=== PATIENT | female | born 1950 | race Caucasian/White ===

== ENCOUNTER → 2017-11-12 | Outpatient (CLI) | payer OTHER, MEDICARE ==
[~2017-11-12] MED LIST: ACTIFED; IBUP-1459
--- NOTE | 2017-11-12 15:53 | MAMMOGRAPHY REPORT ---
BILATERAL DIGITAL SCREENING MAMMOGRAM TOMOSYNTHESIS WITH CAD: 11/12/2017 CLINICAL HISTORY: Routine screening. Patient has no complaints. TECHNIQUE: Breast tomosynthesis in addition to standard 2D mammography was performed. Current study was also evaluated with a Computer Aided Detection (CAD) system. COMPARISON: Comparison is made to exams dated: 11/09/2015 mammogram, 11/24/2014 mammogram, 11/18/2013 m ammogram, 11/12/2012 mammogram, 11/07/2011 mammogram, and 11/01/2010 mammogram - [facility] nter. BREAST COMPOSITION: The tissue of both breasts is almost entirely fatty. FINDINGS: No suspicious masses, calcifications, or areas of architectural distortion are noted in ei ther breast. There has been no significant interval change compared to prior exams. IMPRESSION: ACR BI-RADS CATEGORY 1: NEGATIVE There is no mammographic evidence of malignancy. A 1 year screening mammogram is recommended. The pa tient will receive written notification of the results. Approximately 10% of breast cancers are not detected with mammography. A negative mammographic report should not delay biopsy if a clinically suggestive mass is present. Cherie Freed M.D. /:11/12/2017 11:16:13 [employer]: Yola XIONG(R)(M), [facility] letter sent: Normal 1/2 BI-RADS Code: ACR BI-RADS Category 1: Negative
== END | disposition home or self-care (01) ==
LOC: C.MAMM 09:58
PROVIDERS: ATTEND Obstetrics & Gynecology
DX: Z12.31 Encounter for screening mammogram for malignant neoplasm of breast (principal)

== ENCOUNTER 2018-05-16 17:20 | Inpatient (IN) | payer OTHER, MEDICARE ==
[~2018-05-16] VITALS: Ht 154.9 cm; Wt 72.9 kg
[2018-05-16] MEDS ORDERED: MoRPHine SULFATE 4 MG/ML 1 ML CARP\\VIAL IV STA (17:29)
[2018-05-16] MEDS ORDERED: ONDANSETRON INJ 2 MG/ML 2 ML VIAL IV STA (17:29)
[2018-05-16] MEDS ORDERED: ACETAMINOPHEN 500 MG TAB PO STA (17:29)
[2018-05-16] MEDS ORDERED: KETOROLAC TROMETHAMINE 30 MG/ML VIAL IV STA (17:29)
[2018-05-16] MEDS ORDERED: SODIUM CHLORIDE 0.9% 1000ML 1,000 ML IV STA (17:29)
--- NOTE | 2018-05-16 17:33 | EMERGENCY ROOM VISIT NOTE ---
History Report prepared by Sunshineibjaneth: Hunter Can Under the Supervision of: Dr. Pal Chavez M.D. First contact with patient: 17:24 Chief Complaint: ABDOMINAL PAIN Stated Complaint: ABDOMINAL PAIN History of Present Illness The patient is a 67 year old female who presents to the Emergency Room with complaints of umbilical abdominal pain and a fever. The patient states she has had the pain since last evening. She states the pain is intermittent and waxes and wanes. She states she has started to feel feverish today as well. She denies CP, SOB, nausea/vomiting/diarrhea, urinary complaints, or any other concerns. The patient denies trouble having a BM except she notes "pain inside" when she goes. She was concerned it was constipation so she took a stool softener yesterday, and has been having BMs. The patient states she has a history of diverticulitis. The patient states she has been taking Tylenol and ASA intermittently for pain. Source of History: patient Position: abdomen (umbilical) Symptom Intensity: moderate Quality: ache Timing: intermittent, waxes/wanes Modifying Factors (Relieving): other (positional) Associated Symptoms: + fevers, No chest pain, No SOB, No nausea, No vomiting , No back pain, No diarrhea, No urinary symptoms Review of Systems See HPI for pertinent positives & negatives. A total of 10 systems reviewed and were otherwise negative. Constitutional: + fever, No chills Respiratory: No shortness of breath Cardiovascular: No chest pain Abdomen: + pain, No nausea, No vomiting, No diarrhea, No constipation Genitourinary - Female: No dysuria, No urinary frequency, No urinary urgency , No urinary incontinence, No urinary retention Past Medical & Surgical History of diverticulitis. Social History Smoking Status: Never Smoker Smokeless Tobacco Use: No Marital Status: Housing Status: lives with significant other Current/Historical Medications Scheduled Acetaminophen (Tylenol), 1,000 MG PO UD Aspirin (Aspirin Ec), 325 MG PO DAILY Allergies Coded Allergies: No Known Allergies (Verified , 05/16/18) Physical Exam Vital Signs Date Time Temp Pulse Resp B/P (MAP) Pulse Ox O2 Delivery O2 Flow Rate FiO2 05/16/18 18:22 93 20 137/72 96 Room Air 05/16/18 17:21 38.4 106 18 190/76 98 Room Air Physical Exam GENERAL: Patient is in no acute distress. HEENT: No acute trauma, normocephalic atraumatic, mucous membranes moist, no nasal congestion, no scleral icterus. NECK: No stridor, no adenopathy, no meningismus, trachea is midline. LUNGS: Clear to auscultation bilaterally, no wheeze, no rhonchi, breath sounds equal. HEART: Without murmurs gallops or rubs, regular rate and rhythm. ABDOMEN: Tenderness to bilateral lower quadrants but more on the left. Soft, bowel sounds positive, no hernias, no peritonitis. EXTREMITIES: No cyanosis or edema, full range of motion of all the joints without pain or difficulty, no signs for acute trauma. NEUROLOGIC: Oriented x 3, no acute motor or sensory deficits, no focal weakness. SKIN: No rash, no jaundice, no diaphoresis. BACK: No flank pain with percussion Medical Decision & Procedures ER Provider Diagnostic Interpretation: Radiology results as stated below per my review and radiologist interpretation: ABDOMEN AND PELVIS CT WITH IV CONTRAST FINDINGS: A few linear densities at the lung bases consistent with subsegmental atelectasis. No pneumoperitoneum. No pneumatosis. No suspicious lytic or blastic osseous lesions. No hepatic or splenic masses. The gallbladder, pancreas , and adrenal glands are unremarkable. Mild intra and extra hepatic bile duct dilatation remains unchanged. The common bile duct measures up to 7.7 mm. No hydronephrosis. There is a 7 mm hypodense lesion within the lower pole the left kidney. This is similar to the prior study and likely represents a cyst. No retroperitoneal lymphadenopathy. No bladder wall thickening. The uterus is surgically absent. No pelvic lymphadenopathy. There is focal thickening of the mid sigmoid colon with an inflamed diverticulum versus a small pericolonic abscess measuring 1.6 cm. This is consistent with acute diverticulitis. There is associated pericolonic inflammatory change at this location. There is a loop of small bowel adjacent to this area of inflammation which is mildly thickened. This is likely reactive. There is mild mass effect along the left side of the bladder. There is a possible developing colovaginal fistula along the left side of the vaginal cuff which is mildly thickened and abuts the inflamed colon. No dilated loops of small bowel to suggest an obstruction. Normal appendix. IMPRESSION: 1. Acute sigmoid diverticulitis. There is a 1.6 cm inflamed diverticulum versus small pericolonic abscess at this location. This is similar to the prior study. 2. There is a possible developing colovaginal fistula along the left side of the vaginal cuff which is mildly thickened and abuts the inflamed colon. Follow- up nonemergent endoscopy should be performed to evaluate for the possibility of a fistula as well as exclude the less likely possibility of an underlying mass. 3. Stable mild intra and extra hepatic bile duct dilatation. Laboratory Results 05/16/18 18:02 Red Blood Count 3.95, Mean Corpuscular Volume 93.4, Mean Corpuscular Hemoglobin 31.1, Mean Corpuscular Hemoglobin Concent 33.3, Mean Platelet Volume 9.6, Neutrophils (%) (Auto) 74.0, Lymphocytes (%) (Auto) 15.4, Monocytes (%) (Auto) 10.0, Eosinophils (%) (Auto) 0.2, Basophils (%) (Auto) 0.1, Neutrophils # (Auto ) 9.30, Lymphocytes # (Auto) 1.93, Monocytes # (Auto) 1.26, Eosinophils # (Auto ) 0.03, Basophils # (Auto) 0.01 05/16/18 18:02 Test 05/16/18 18:02 05/16/18 19:20 White Blood Count 12.57 K/uL (4.8-10.8) Red Blood Count 3.95 M/uL (4.2-5.4) Hemoglobin 12.3 g/dL (12.0-16.0) Hematocrit 36.9 % (37-47) Mean Corpuscular Volume 93.4 fL (80-100) Mean Corpuscular Hemoglobin 31.1 pg (25-34) Mean Corpuscular Hemoglobin Concent 33.3 g/dl (32-36) Platelet Count 290 K/uL (130-400) Mean Platelet Volume 9.6 fL (7.4-10.4) Neutrophils (%) (Auto) 74.0 % Lymphocytes (%) (Auto) 15.4 % Monocytes (%) (Auto) 10.0 % Eosinophils (%) (Auto) 0.2 % Basophils (%) (Auto) 0.1 % Neutrophils # (Auto) 9.30 K/uL (1.4-6.5) Lymphocytes # (Auto) 1.93 K/uL (1.2-3.4) Monocytes # (Auto) 1.26 K/uL (0.11-0.59) Eosinophils # (Auto) 0.03 K/uL (0-0.5) Basophils # (Auto) 0.01 K/uL (0-0.2) RDW Standard Deviation 43.2 fL (36.4-46.3) RDW Coefficient of Variation 12.6 % (11.5-14.5) Immature Granulocyte % (Auto) 0.3 % Immature Granulocyte # (Auto) 0.04 K/uL (0.00-0.02) Anion Gap 7.0 mmol/L (3-11) Est Creatinine Clear Calc Drug Dose 79.4 ml/min Estimated GFR () 107.4 Estimated GFR (Non- 92.7 BUN/Creatinine Ratio 25.8 (10-20) Calcium Level 8.9 mg/dl (8.5-10.1) Total Bilirubin 0.8 mg/dl (0.2-1) Aspartate Amino Transf (AST/SGOT) 21 U/L (15-37) Alanine Aminotransferase (ALT/SGPT) 28 U/L (12-78) Alkaline Phosphatase 86 U/L (45-117) Total Protein 7.3 gm/dl (6.4-8.2) Albumin 3.6 gm/dl (3.4-5.0) Globulin 3.7 gm/dl (2.5-4.0) Albumin/Globulin Ratio 1.0 (0.9-2) Lipase 125 U/L (73-393) Urine Color YELLOW Urine Appearance CLEAR (CLEAR) Urine pH 5.0 (4.5-7.5) Urine Specific [place] 1.018 (1.000-1.030) Urine Protein NEG (NEG) Urine Glucose (UA) NEG (NEG) Urine Ketones NEG (NEG) Urine Occult Blood NEG (NEG) Urine Nitrite NEG (NEG) Urine Bilirubin NEG (NEG) Urine Urobilinogen NEG (NEG) Urine Leukocyte Esterase NEG (NEG) Medications Administered Medications (Trade) Dose Ordered Sig/Sally Route Start Time Stop Time Status Last Admin Dose Admin Ondansetron HCl (Zofran Inj) 4 mg NOW STAT IV 05/16/18 17:29 05/16/18 17:33 DC 05/16/18 17:55 4 MG Sodium Chloride 1,000 ml @ 999 mls/hr Q1H1M STAT IV 05/16/18 17:29 05/16/18 18:29 DC 05/16/18 17:55 999 MLS/HR Ketorolac Tromethamine (Toradol Inj) 15 mg NOW STAT IV 05/16/18 17:29 05/16/18 17:33 DC 05/16/18 17:56 15 MG Acetaminophen (Tylenol Tab) 1,000 mg NOW STAT PO 05/16/18 17:29 05/16/18 17:33 DC 05/16/18 17:57 1,000 MG Morphine Sulfate (MoRPHine SULFATE INJ) 4 mg NOW STAT IV 05/16/18 17:29 05/16/18 17:34 DC 05/16/18 17:56 4 MG ED Course 1927: Urine Dip showed trace proteins with no signs of infection Medical Decision Ms. Echeverria is a pleasant 67 year old female who reports today with umbilical abdominal pain x1 day. She reported a fever today which is why she came in. She notes a history of diverticulitis. Exam showed bilateral lower quadrant abdominal tenderness, worse on the left, and no flank tenderness with percussion. Differential Diagnosis: Diverticulitis, Appendicis, Abscess, UTI, Dehydration, Biliary Colic, Colitis, Hernia, Pyelonephritis Orders: 1731: IV Fluids, CBC w/ differential, Lipase, CMP, UA Clean Catch, Zofran, Toradol, Tylenol, CT Abdomen/Pelvis, Morphine There is a mild leukocytosis, this is consistent with infection. No concerning anemia. No significant electrolyte abnormality, kidney failure, hepatitis or pancreatitis. Urinalysis does not show evidence for infection. Abdominal and pelvis CT shows diverticulitis with a potential small abscess and potential fistula. No bowel obstruction. On my exam, she was not toxic. There was no peritonitis. The patient received IV Zosyn, IV saline, IV morphine, IV Toradol, oral Tylenol and IV Zofran. She feels improved. I did speak with general surgery. The patient does require a hospital stay with IV antibiotic's. No emergent surgery required. She may require surgery in the upcoming near future but nothing required this evening. The patient was updated. I spoke to case management. The on-call hospitalist was consulted. Medication Reconcilliation Current Medication List: was personally reviewed by me Blood Pressure Screening Patient's blood pressure: Elevated blood pressure Blood pressure disposition: Elevated BP felt to be situational Consults Time Called: 1934 Consulting Physician: Dr. Ronald Farfan (General Surgery) Returned Call: 1944 Discussed HPI, ROS, PE, and Results. Feels patient can be admitted to hospital and receive antibiotics. Does not feel there is immediate need for surgery. Additional Consults: Time Called: 1949 Consulted Physician: Dr. Ruiz ([facility] Hospitalist) Returned Call: 1954 Additional Comments: Discussed HPI, ROS, PE, and Results. Agrees to admit the patient. Impression Primary Impression: Acute diverticulitis Additional Impressions: Fever Leukocytosis Scribe Attestation The scribe's documentation has been prepared under my direction and personally reviewed by me in its entirety. I confirm that the note above accurately reflects all work, treatment, procedures, and medical decision making performed by me. Departure Information Dispostion Being Evaluated By Hospitalist Referrals Charlene Nation M.D. (PCP) Forms Call Back Authorization, HOME CARE DOCUMENTATION FORM, IMPORTANT VISIT INFORMATION Patient Instructions My [facility] Problem Qualifiers
[2018-05-16] MEDS ORDERED: OPTIRAY 320 IV PRN (17:45)
[2018-05-16 18:22] LABS: BASO % 0.1 %; BASO ABS # 0.01 K/uL (0-0.2); EOS % 0.2 %; EOS ABS # 0.03 K/uL (0-0.5); HEMATOCRIT 36.9 % (37-47); HEMOGLOBIN 12.3 g/dL (12.0-16.0); IG# 0.04 K/uL (0.00-0.02); LYMPH % 15.4 %; LYMPH ABS # 1.93 K/uL (1.2-3.4); MEAN CELL VOLUME 93.4 fL (80-100); MEAN CORPUSCULAR HEMOGLOBIN 31.1 pg (25-34); MEAN CORPUSCULAR HGB CONC 33.3 g/dl (32-36); MEAN PLATELET VOLUME 9.6 fL (7.4-10.4); MONO ABS # 1.26 K/uL (0.11-0.59); PLATELET COUNT 290 K/uL (130-400); RED CELL DISTRIBUTION WIDTH CV 12.6 % (11.5-14.5); RED CELL DISTRIBUTION WIDTH SD 43.2 fL (36.4-46.3); WHITE BLOOD COUNT 12.57 K/uL (4.8-10.8)
[2018-05-16] MEDS ORDERED: ACET-1256 PO (18:25)
[2018-05-16] MEDS ORDERED: ASPI325T39 PO (18:25)
[2018-05-16 18:40] LABS: ALBUMIN 3.6 gm/dl (3.4-5.0); CALCIUM 8.9 mg/dl (8.5-10.1); CREATININE 0.66 mg/dl (0.60-1.20); POTASSIUM 3.8 mmol/L (3.5-5.1); TOTAL PROTEIN 7.3 gm/dl (6.4-8.2)
--- NOTE | 2018-05-16 19:33 | DIAGNOSTIC IMAGING REPORT ---
ABDOMEN AND PELVIS CT WITH IV CONTRAST CT DOSE: 437.86 mGy.cm HISTORY: Generalized abdominal pain. Assess for diverticulitis. TECHNIQUE: Multiaxial CT images of the abdomen and pelvis were performed following the use of intravenous contrast. A dose lowering technique was utilized adhering to the principles of ALARA. COMPARISON STUDY: Abdomen and pelvis CT 12/08/2012. FINDINGS: A few linear densities at the lung bases consistent with subsegmental atelectasis. No pneumoperitoneum. No pneumatosis. No suspicious lytic or blastic osseous lesions. No hepatic or splenic masses. The gallbladder, pancreas, and adrenal glands are unremarkable. Mild intra and extra hepatic bile duct dilatation remains unchanged. The common bile duct measures up to 7.7 mm. No hydronephrosis. There is a 7 mm hypodense lesion within the lower pole the left kidney. This is similar to the prior study and likely represents a cyst. No retroperitoneal lymphadenopathy. No bladder wall thickening. The uterus is surgically absent. No pelvic lymphadenopathy. There is focal thickening of the mid sigmoid colon with an inflamed diverticulum versus a small pericolonic abscess measuring 1.6 cm. This is consistent with acute diverticulitis. There is associated pericolonic inflammatory change at this location. There is a loop of small bowel adjacent to this area of inflammation which is mildly thickened. This is likely reactive. There is mild mass effect along the left side of the bladder. There is a possible developing colovaginal fistula along the left side of the vaginal cuff which is mildly thickened and abuts the inflamed colon. No dilated loops of small bowel to suggest an obstruction. Normal appendix. IMPRESSION: 1. Acute sigmoid diverticulitis. There is a 1.6 cm inflamed diverticulum versus small pericolonic abscess at this location. This is similar to the prior study. 2. There is a possible developing colovaginal fistula along the left side of the vaginal cuff which is mildly thickened and abuts the inflamed colon. Follow-up nonemergent endoscopy should be performed to evaluate for the possibility of a fistula as well as exclude the less likely possibility of an underlying mass. 3. Stable mild intra and extra hepatic bile duct dilatation. Electronically signed by: Gómez Soares M.D. 05/16/2018 7:31 PM Dictated Date/Time: 05/16/2018 7:23 PM
[2018-05-16] MEDS ORDERED: PIPERACILLIN/TAZOBACTAM 4.5 GM/100ML D5W IV STA (19:39)
[2018-05-16] MEDS ORDERED: TRAMADOL HCL 50 MG TAB PO PRN (20:45)
[2018-05-16] MEDS ORDERED: PROCHLORPERAZINE INJ 5 MG in SYRINGE 4 ML IV PRN (20:45)
[2018-05-16] MEDS ORDERED: ACETAMINOPHEN 325 MG TAB PO PRN (20:45)
[2018-05-16] MEDS ORDERED: MoRPHine SULFATE 4 MG/ML 1 ML CARP\\VIAL IV PRN (20:45)
--- NOTE | 2018-05-16 21:07 | Surgery Consultation ---
Consultation Date of Consultation: May 16, 2018. Attending Physician: Reason for Consultation: Sigmoid diverticulitis (Surendra Araujo PA-C) History of Present Illness Patient presented to the ED this evening with abdominal pain starting last night. [place] [facility] and [facility] of [facility]. Later that evening she developed Lower quadrant abdominal pain wrapping from the left to right. Reports her pain has gotten progressively worse since onset. Of note she also reports she had similar pain night after eating at [employer] but this resolved on its own. Reports she has had on and off fevers. Denies nausea, vomiting, recent illness. Last BM early this afternoon which was loose. Denies blood in stool. Urinating without issue. This will be her third bout of diverticulitis. The previous two were treated with conservative management in the ED without admission. Her last colonoscopy was approximately 5 years ago following a bout of diverticulitis with Dr. Rousseau with [facility]. Patient reports this colonoscopy showed unremarkable findings. Denies history of any abdominal surgeries. patient does take Aspirin 325mg daily. Denies use of other blood thinning or anticoagulant medications. WBC 12.57. CT shows findings significant for acute sigmoid diverticulitis with a 1.6 cm inflamed diverticulum vs pericolonic abscess, possible developing colovaginal fistula. (Surendra Araujo PA-C) Past Medical/Surgical History Medical Problems: (1) Acute diverticulitis Status: Acute (2) Fever Status: Acute (3) Leukocytosis Status: Acute (Surendra Araujo PA-C) Social History Smoking Status: Never Smoker Smokeless Tobacco Use: No Marital Status: Housing Status: lives with significant other (Surendra Araujo PA-C) Allergies Coded Allergies: No Known Allergies (Verified , 05/16/18) Home Medications Scheduled Acetaminophen (Tylenol), 1,000 MG PO UD Aspirin (Aspirin Ec), 325 MG PO DAILY Current Inpatient Medications Current Inpatient Medications Medications (Trade) Dose Ordered Sig/Sally Route Start Time Stop Time Status Last Admin Dose Admin Ioversol (Optiray 320) 100 ml UD PRN IV 05/16/18 17:45 05/20/18 17:44 Enoxaparin Sodium (Lovenox Inj) 40 mg Q24H SQ 05/16/18 20:45 06/15/18 20:44 UNV Acetaminophen (Tylenol Tab) 650 mg Q4H PRN PO 05/16/18 20:45 06/15/18 20:44 UNV Tramadol HCl (Ultram Tab) not relieved by tylenol @ Q6H PRN PO 05/16/18 20:45 06/15/18 20:44 UNV Ketorolac Tromethamine (Toradol Inj) 15 mg Q6H PRN IV 05/16/18 20:45 05/21/18 20:44 UNV Prochlorperazine Edisylate 5 mg/ Syringe 5 ml @ 5 mls/min Q6H PRN IV 05/16/18 20:45 06/15/18 20:44 UNV Potassium Chloride/Sodium Chloride 1,000 ml @ 100 mls/hr Q10H IV 05/16/18 20:45 06/15/18 20:44 UNV Aspirin (Ecotrin Tab) 325 mg DAILY PO 05/17/18 09:00 06/16/18 08:59 UNV Morphine Sulfate (MoRPHine SULFATE INJ) 4 mg Q4H PRN IV 05/16/18 20:45 05/30/18 20:44 UNV Miscellaneous Information (Pharmacy Consult) 1 ea DAILY N/A 05/17/18 09:00 06/16/18 08:59 UNV (Surendra Araujo PA-C) Review of Systems Constitutional: + fever, No chills Respiratory: No shortness of breath Cardiovascular: No chest pain Abdomen: + pain (Lower abdominal pain), + problem reported (loose stools), No nausea, No vomiting, No diarrhea, No constipation Genitourinary - Female: No dysuria, No hematuria Integumentary: No new/changing skin lesions, No color change (Surendra Araujo , PA-C) Physical Exam Date Time Temp Pulse Resp B/P (MAP) Pulse Ox O2 Delivery O2 Flow Rate FiO2 05/16/18 20:30 84 18 155/83 97 Room Air 05/16/18 18:22 93 20 137/72 96 Room Air 05/16/18 17:21 38.4 106 18 190/76 98 Room Air General Appearance: WD/WN, no apparent distress Head: normocephalic, atraumatic ENT: hearing grossly normal Respiratory/Chest: no respiratory distress Abdomen/GI: soft, no organomegaly, no pulsatile mass, + tenderness (RLQ wrapping to LLQ TTP - most prominent in LLQ) Neurologic/Psych: alert, normal mood/affect, oriented x 3 Skin: normal color, warm/dry (Surendra Araujo, OCTAVIO) Laboratory Results Last 24 Hours Test 05/16/18 18:02 05/16/18 19:20 05/16/18 20:11 White Blood Count 12.57 K/uL Red Blood Count 3.95 M/uL Hemoglobin 12.3 g/dL Hematocrit 36.9 % Mean Corpuscular Volume 93.4 fL Mean Corpuscular Hemoglobin 31.1 pg Mean Corpuscular Hemoglobin Concent 33.3 g/dl Platelet Count 290 K/uL Mean Platelet Volume 9.6 fL Neutrophils (%) (Auto) 74.0 % Lymphocytes (%) (Auto) 15.4 % Monocytes (%) (Auto) 10.0 % Eosinophils (%) (Auto) 0.2 % Basophils (%) (Auto) 0.1 % Neutrophils # (Auto) 9.30 K/uL Lymphocytes # (Auto) 1.93 K/uL Monocytes # (Auto) 1.26 K/uL Eosinophils # (Auto) 0.03 K/uL Basophils # (Auto) 0.01 K/uL RDW Standard Deviation 43.2 fL RDW Coefficient of Variation 12.6 % Immature Granulocyte % (Auto) 0.3 % Immature Granulocyte # (Auto) 0.04 K/uL Sodium Level 136 mmol/L Potassium Level 3.8 mmol/L Chloride Level 104 mmol/L Carbon Dioxide Level 26 mmol/L Anion Gap 7.0 mmol/L Blood Urea Nitrogen 17 mg/dl Creatinine 0.66 mg/dl Est Creatinine Clear Calc Drug Dose 79.4 ml/min Estimated GFR () 107.4 Estimated GFR (Non- 92.7 BUN/Creatinine Ratio 25.8 Random Glucose 111 mg/dl Calcium Level 8.9 mg/dl Magnesium Level 2.1 mg/dl Total Bilirubin 0.8 mg/dl Aspartate Amino Transf (AST/SGOT) 21 U/L Alanine Aminotransferase (ALT/SGPT) 28 U/L Alkaline Phosphatase 86 U/L Total Protein 7.3 gm/dl Albumin 3.6 gm/dl Globulin 3.7 gm/dl Albumin/Globulin Ratio 1.0 Lipase 125 U/L Urine Color YELLOW Urine Appearance CLEAR Urine pH 5.0 Urine Specific [place] 1.018 Urine Protein NEG Urine Glucose (UA) NEG Urine Ketones NEG Urine Occult Blood NEG Urine Nitrite NEG Urine Bilirubin NEG Urine Urobilinogen NEG Urine Leukocyte Esterase NEG (Surendra Araujo, LUIS ALBERTOC) Assessment & Plan Acute sigmoid diverticulitis w/ possible 1.6 inflamed diverticulum vs pericolonic abscess, possible colovaginal fistula. Abdomen soft, non-distended, TTP in B/L lower quadrants. No N/V at this time. febrile. No acute surgical intervention indicated at this time. Admit per medicine - recommend conservative management for diverticulitis. IVF, IV Zosyn, NPO, pain medication prn, anti-emetics prn, SCDs. Likely will need outpatient colonoscopy after resolution. Findings discussed with Dr. Farfan. Will follow. Please contact with questions or concerns. (Surendra Araujo, QUINTEN-C) 05/17/18- pt was seen in ER and hx reviewed- also see Nasir Araujo's note had acute diverticulitis w/ pericolonic inflammation- no overt sxs to suggest colovaginal fistula- will need several days of IV atbx and f/u as outpt if she progresses well. May require colon resection in future. (Ronald Farfan M.D.)
[2018-05-16 22:33] VITALS: BP 157/83; PULSE 84; TEMP 36.6; O2SAT 96; BMI 30.9
--- NOTE | 2018-05-16 22:38 | HISTORY & PHYSICAL EXAMINATION ---
DATE OF ADMISSION: 05/16/2018 PRIMARY CARE DOCTOR: None. CHIEF COMPLAINT: Abdominal pain. HISTORY OF PRESENT ILLNESS: Medical history significant for recurrent diverticulitis (2 episodes), mood disorder, Cervical intraepithelial neoplasia as per records. Four days history of mild, intermittent lower abdominal discomfort following dinner. Symptoms more pronounced last night. some nausea, no emesis. Patient had fever, chills. Nonbloody stools. Symptoms reminiscent of diverticulitis episodes. Denies dysuria. At the Emergency Room, CAT scan showed acute sigmoid diverticulitis with a 1.6 inflamed diverticulum versus small pericolonic abscess at the location. Possible developing colovaginal fistula along the left-sided vaginal cuff, mildly thickened but inflamed colon. Patient given Zosyn at the ER. MEDICAL HISTORY: As above. Last colonoscopy was about 5 years done at [facility]. OPERATIONS: Total abdominal hysterectomy, bilateral salpingo-oophorectomy, Recent orthopedic surgery, left upper extremity at [facility] 2 months ago. Patient requested to stay on aspirin for DVT prophylaxis until follow-up with surgeon. HOME MEDICATIONS: Aspirin, Tylenol. FAMILY HISTORY: Diverticulitis. PERSONAL AND SOCIAL HISTORY: Nonsmoker. No EtOH intake. Retired insurance claims examiner. REVIEW OF SYSTEMS: As per HPI, all 10 systems reviewed, all other ROS negative. PHYSICAL EXAMINATION: VITAL SIGNS: Blood pressure was noted to be 190/76, later 137/72; pulse rate 106, later 93; respiratory rate 18, temperature 38.4, sats 98 on room air. GENERAL: Noted to be slightly anxious, obese, in no respiratory distress. SKIN: Normal color, warm. HEENT: Bespectacled. [place] palpebral conjunctivae. No ptosis. Dry mucosa. NECK: Supple, nontender. CHEST: Clear to auscultation. No tenderness. HEART: Regular rate and rhythm. No murmur. ABDOMEN: Minimal hypogastric tenderness, some distention. EXTREMITIES: Healed scar on the left elbow. No LE tenderness. NEUROLOGIC: Coherent, no gross focality. LABORATORY DATA: Hemoglobin was noted to be 12.3, white blood cell count 12.7, platelets 290. Sodium 137, potassium 3.7, chloride 104, CO2 of 26, BUN 7, creatinine 0.66, glucose 111. CT abdomen and pelvis as above. UA clean. ASSESSMENT: 1. Sepsis secondary to complicated diverticulitis. 2. Situational hypertension. 3. Hyperglycemia ro DM. 4. Recent UE orthopedic procedure currently on ASA thromboprophylaxis. PLAN: GMF CS, lactic acid Bowel rest IV fluids, Zosyn. Surgery consult. RE complicated diverticulitis. (ER provider already in touch with Dr. Farfan) Outpatient GI follow-up for colonoscopy. Check hemoglobin A1c. Deep venous prophylaxis, Lovenox subQ. Full code. Patient has expressed interest in setting up PCP services with Dr. Leon of [facility] upon discharge if provider is still taking new patients. MARYD
[2018-05-16] MEDS: NSS + 20MEQ KCL 1000ML 1,000 ML IV SCH (22:52)
[2018-05-17] MEDS: PIPERACILL/TAZOBAC IV 3.375 GM in DEXTROSE 5% 100ML 100 ML IV SCH ×3 (02:08→17:59)
[2018-05-17 05:50] LABS: BASO % 0.1 %; BASO ABS # 0.01 K/uL (0-0.2); EOS % 0.8 %; EOS ABS # 0.06 K/uL (0-0.5); HEMATOCRIT 34.6 % (37-47); HEMOGLOBIN 11.7 g/dL (12.0-16.0); IG# 0.01 K/uL (0.00-0.02); LYMPH % 18.4 %; LYMPH ABS # 1.47 K/uL (1.2-3.4); MEAN CELL VOLUME 93.5 fL (80-100); MEAN CORPUSCULAR HEMOGLOBIN 31.6 pg (25-34); MEAN CORPUSCULAR HGB CONC 33.8 g/dl (32-36); MEAN PLATELET VOLUME 9.6 fL (7.4-10.4); MONO % 9.5 %; MONO ABS # 0.76 K/uL (0.11-0.59); NEUT % 71.1 %; NEUT ABS # 5.69 K/uL (1.4-6.5); PLATELET COUNT 265 K/uL (130-400); RED CELL DISTRIBUTION WIDTH CV 12.7 % (11.5-14.5); RED CELL DISTRIBUTION WIDTH SD 43.1 fL (36.4-46.3)
[2018-05-17 06:56] LABS: HEMOGLOBIN A1C 5.6 % (4.5-5.6)
--- NOTE | 2018-05-17 07:15 | Surgery Progress Note ---
Surgery Progress Note Date of Service May 17, 2018. Subjective + feeling well, + flatus, + pain controlled, + diet (chips/sips), No complaints , No bowel movement, No nausea, No vomiting Objective Vital Signs: Date Time Temp Pulse Resp B/P (MAP) Pulse Ox O2 Delivery O2 Flow Rate FiO2 05/17/18 00:00 Room Air 05/16/18 22:33 36.6 84 20 157/83 96 Room Air 05/16/18 21:11 82 18 154/80 97 05/16/18 20:30 84 18 155/83 97 Room Air 05/16/18 18:22 93 20 137/72 96 Room Air 05/16/18 17:21 38.4 106 18 190/76 98 Room Air General Appearance: WD/WN, no apparent distress Head: normocephalic, atraumatic Respiratory/Chest: no respiratory distress Abdomen: non distended, soft, no organomegaly, + tenderness (B/L lower quadrants) Laboratory Results: Results Past 24 Hours Test 05/16/18 18:02 05/16/18 19:20 05/16/18 20:54 05/17/18 05:26 Range/Units White Blood Count 12.57 8.00 4.8-10.8 K/uL Red Blood Count 3.95 3.70 4.2-5.4 M/uL Hemoglobin 12.3 11.7 12.0-16.0 g/dL Hematocrit 36.9 34.6 37-47 % Mean Corpuscular Volume 93.4 93.5 80-100 fL Mean Corpuscular Hemoglobin 31.1 31.6 25-34 pg Mean Corpuscular Hemoglobin Concent 33.3 33.8 32-36 g/dl Platelet Count 290 265 130-400 K/uL Mean Platelet Volume 9.6 9.6 7.4-10.4 fL Neutrophils (%) (Auto) 74.0 71.1 % Lymphocytes (%) (Auto) 15.4 18.4 % Monocytes (%) (Auto) 10.0 9.5 % Eosinophils (%) (Auto) 0.2 0.8 % Basophils (%) (Auto) 0.1 0.1 % Neutrophils # (Auto) 9.30 5.69 1.4-6.5 K/uL Lymphocytes # (Auto) 1.93 1.47 1.2-3.4 K/uL Monocytes # (Auto) 1.26 0.76 0.11-0.59 K/uL Eosinophils # (Auto) 0.03 0.06 0-0.5 K/uL Basophils # (Auto) 0.01 0.01 0-0.2 K/uL RDW Standard Deviation 43.2 43.1 36.4-46.3 fL RDW Coefficient of Variation 12.6 12.7 11.5-14.5 % Immature Granulocyte % (Auto) 0.3 0.1 % Immature Granulocyte # (Auto) 0.04 0.01 0.00-0.02 K/uL Sodium Level 136 136-145 mmol/L Potassium Level 3.8 3.5-5.1 mmol/L Chloride Level 104 98-107 mmol/L Carbon Dioxide Level 26 21-32 mmol/L Anion Gap 7.0 3-11 mmol/L Blood Urea Nitrogen 17 7-18 mg/dl Creatinine 0.66 0.60-1.20 mg/dl Est Creatinine Clear Calc Drug Dose 79.4 ml/min Estimated GFR () 107.4 Estimated GFR (Non- 92.7 BUN/Creatinine Ratio 25.8 10-20 Random Glucose 111 70-99 mg/dl Estimated Average Glucose 114 mg/dl Hemoglobin A1c 5.6 4.5-5.6 % Calcium Level 8.9 8.5-10.1 mg/dl Magnesium Level 2.1 1.8-2.4 mg/dl Total Bilirubin 0.8 0.2-1 mg/dl Aspartate Amino Transf (AST/SGOT) 21 15-37 U/L Alanine Aminotransferase (ALT/SGPT) 28 12-78 U/L Alkaline Phosphatase 86 45-117 U/L Total Protein 7.3 6.4-8.2 gm/dl Albumin 3.6 3.4-5.0 gm/dl Globulin 3.7 2.5-4.0 gm/dl Albumin/Globulin Ratio 1.0 0.9-2 Lipase 125 73-393 U/L Urine Color YELLOW Urine Appearance CLEAR CLEAR Urine pH 5.0 4.5-7.5 Urine Specific [place] 1.018 1.000-1.030 Urine Protein NEG NEG Urine Glucose (UA) NEG NEG Urine Ketones NEG NEG Urine Occult Blood NEG NEG Urine Nitrite NEG NEG Urine Bilirubin NEG NEG Urine Urobilinogen NEG NEG Urine Leukocyte Esterase NEG NEG Lactic Acid Level 0.6 0.4-2.0 mmol/L Prothrombin Time 10.2 9.0-12.0 SECONDS Prothromb Time International Ratio 1.0 0.9-1.1 Microbiology Results 05/16/18 Blood Culture, Received Pending 05/16/18 Blood Culture, Received Pending Assessment & Plan acute diverticulitis w/ pericolonic inflammation Pain controlled, TTP slightly improved in lower quadrants. Tolerating chips/ sips, no N/V. afebrile. WBC WNL this AM - Continue IV Zosyn. Possibly start clears later today if she continues to do well. Continue conservative management per medicine. Please contact with questions or concerns. 05/16/18- cont npo exc ice 48 hrs
[2018-05-17 07:32] VITALS: BP 135/87; PULSE 82; TEMP 37; O2SAT 97
[2018-05-17] MEDS: ENOXAPARIN 40 MG/0.4 ML SYR SQ SCH (07:57)
[2018-05-17] MEDS: ASPIRIN 325 MG ECTAB PO SCH (07:58)
[2018-05-17] MEDS ORDERED: PNEUMOCOCCAL ADMINISTRATION CHARGE ONE (08:00)
[2018-05-17] MEDS ORDERED: PNEUMOCOCCAL POLYSACCHARIDES 25 MCG/0.5 ML VIAL/SYR IM. ONE (08:00)
[2018-05-17] MEDS ORDERED: PIPERACILL/TAZOBAC CONSULT ACTIVE PRN (09:00)
[2018-05-17] MEDS: NSS + 20MEQ KCL 1000ML 1,000 ML IV SCH ×2 (10:36→23:51)
--- NOTE | 2018-05-17 15:36 | Progress Note ---
Medicine Progress Note Date & Time of Visit: May 17, 2018 at 15:20. Subjective Pt was seen and examined Lying in bed with no distress Pt said that her pain improved She said that she is hungry Denies any nausea, vomiting, SOB, chest pain and palpitation Objective Last 8 Hrs Date Time Temp Pulse Resp B/P (MAP) Pulse Ox O2 Delivery O2 Flow Rate FiO2 05/17/18 08:00 Room Air 05/17/18 07:32 37.0 82 18 135/87 (103) 97 Room Air Physical Exam: General- No acute distress Head- atraumatic Eyes- PERRL, EOMI ENT- oropharynx clear Neck- supple, no JVD Lungs- CTA B/L Heart- regular rhythm Abdomen- normal bowel sounds, +tender with palpation Extremities- no calf tenderness Neuro- alert, oriented x 3; PERRL, EOMI Skin- warm & dry Laboratory Results: Last 24 Hours Test 05/16/18 18:02 05/16/18 19:20 05/16/18 20:54 05/17/18 05:26 White Blood Count 12.57 K/uL 8.00 K/uL Red Blood Count 3.95 M/uL 3.70 M/uL Hemoglobin 12.3 g/dL 11.7 g/dL Hematocrit 36.9 % 34.6 % Mean Corpuscular Volume 93.4 fL 93.5 fL Mean Corpuscular Hemoglobin 31.1 pg 31.6 pg Mean Corpuscular Hemoglobin Concent 33.3 g/dl 33.8 g/dl Platelet Count 290 K/uL 265 K/uL Mean Platelet Volume 9.6 fL 9.6 fL Neutrophils (%) (Auto) 74.0 % 71.1 % Lymphocytes (%) (Auto) 15.4 % 18.4 % Monocytes (%) (Auto) 10.0 % 9.5 % Eosinophils (%) (Auto) 0.2 % 0.8 % Basophils (%) (Auto) 0.1 % 0.1 % Neutrophils # (Auto) 9.30 K/uL 5.69 K/uL Lymphocytes # (Auto) 1.93 K/uL 1.47 K/uL Monocytes # (Auto) 1.26 K/uL 0.76 K/uL Eosinophils # (Auto) 0.03 K/uL 0.06 K/uL Basophils # (Auto) 0.01 K/uL 0.01 K/uL RDW Standard Deviation 43.2 fL 43.1 fL RDW Coefficient of Variation 12.6 % 12.7 % Immature Granulocyte % (Auto) 0.3 % 0.1 % Immature Granulocyte # (Auto) 0.04 K/uL 0.01 K/uL Sodium Level 136 mmol/L Potassium Level 3.8 mmol/L Chloride Level 104 mmol/L Carbon Dioxide Level 26 mmol/L Anion Gap 7.0 mmol/L Blood Urea Nitrogen 17 mg/dl Creatinine 0.66 mg/dl Est Creatinine Clear Calc Drug Dose 79.4 ml/min Estimated GFR () 107.4 Estimated GFR (Non- 92.7 BUN/Creatinine Ratio 25.8 Random Glucose 111 mg/dl Estimated Average Glucose 114 mg/dl Hemoglobin A1c 5.6 % Calcium Level 8.9 mg/dl Magnesium Level 2.1 mg/dl Total Bilirubin 0.8 mg/dl Aspartate Amino Transf (AST/SGOT) 21 U/L Alanine Aminotransferase (ALT/SGPT) 28 U/L Alkaline Phosphatase 86 U/L Total Protein 7.3 gm/dl Albumin 3.6 gm/dl Globulin 3.7 gm/dl Albumin/Globulin Ratio 1.0 Lipase 125 U/L Urine Color YELLOW Urine Appearance CLEAR Urine pH 5.0 Urine Specific [place] 1.018 Urine Protein NEG Urine Glucose (UA) NEG Urine Ketones NEG Urine Occult Blood NEG Urine Nitrite NEG Urine Bilirubin NEG Urine Urobilinogen NEG Urine Leukocyte Esterase NEG Lactic Acid Level 0.6 mmol/L Prothrombin Time 10.2 SECONDS Prothromb Time International Ratio 1.0 Date/Time Source Procedure Growth Status 05/16/18 20:54 Blood Blood Culture Pending Received 05/16/18 20:50 Blood Blood Culture Pending Received Assessment & Plan Sepsis Acute sigmoid diverticulitis. Meet sepsis criteria on admission, febrile, tachycardia, elevated WBC, source diverticulitis CT abd/pelvis showed acute sigmoid diverticulitis. There is a 1.6 cm inflamed diverticulum versus small pericolonic abscess at this location Received Zosyn in the ER, Continue IV zosyn Blood cx pending Surgery on board recommended conservative management Monitor closely Recurrent Diverticulitis CT Abd/pel showed acute sigmoid diverticulitis Surgery on board recommended conservative management Surgery on board, recommended to keep NPO except ice chips Continue pain control Continue IVF Clinically improved Hyperglycemia Hga1c 5.6 Stable Elevated BP Mostly due to pain Stable DVT px on Lovenox subq CODE STATUS FULL CODE Current Inpatient Medications: Current Inpatient Medications Medications (Trade) Dose Ordered Sig/Sally Route Start Time Stop Time Status Last Admin Dose Admin Ioversol (Optiray 320) 100 ml UD PRN IV 05/16/18 17:45 05/20/18 17:44 Enoxaparin Sodium (Lovenox Inj) 40 mg Q24H SQ 05/17/18 09:00 06/16/18 08:59 Acetaminophen (Tylenol Tab) 650 mg Q4H PRN PO 05/16/18 20:45 06/15/18 20:44 Tramadol HCl (Ultram Tab) not relieved ... Q6H PRN PO 05/16/18 20:45 06/15/18 20:44 Ketorolac Tromethamine (Toradol Inj) 15 mg Q6H PRN IV 05/16/18 20:45 05/21/18 20:44 Prochlorperazine Edisylate 5 mg/ Syringe 5 ml @ 5 mls/min Q6H PRN IV 05/16/18 20:45 06/15/18 20:44 Potassium Chloride/Sodium Chloride 1,000 ml @ 75 mls/hr [id number] IV 05/16/18 22:00 06/15/18 21:59 05/17/18 10:36 75 MLS/HR Aspirin (Ecotrin Tab) 325 mg DAILY PO 05/17/18 09:00 06/16/18 08:59 05/17/18 07:58 325 MG Morphine Sulfate (MoRPHine SULFATE INJ) 4 mg Q4H PRN IV 05/16/18 20:45 05/30/18 20:44 Miscellaneous Information (Consult) 1 ea UD PRN N/A 05/17/18 09:00 06/16/18 08:59 Piperacillin Sod/ Tazobactam Sod 3.375 gm/Dextrose 115 ml @ 28.75 mls/ hr Q8H IV 05/17/18 02:00 05/27/18 01:59 05/17/18 10:35 28.75 MLS/HR
[2018-05-17 15:48] VITALS: BP 156/90; PULSE 80; TEMP 37; O2SAT 99
[2018-05-17 16:00] VITALS: O2SAT 99
[2018-05-17] MEDS: KETOROLAC TROMETHAMINE 30 MG/ML VIAL IV PRN (19:37)
[2018-05-17 22:17] VITALS: BP 148/83; PULSE 88; TEMP 36.9; O2SAT 95
[2018-05-18] VITALS: BP 138/80; PULSE 88; TEMP 37.1; O2SAT 96
[2018-05-18] MEDS: PIPERACILL/TAZOBAC IV 3.375 GM in DEXTROSE 5% 100ML 100 ML IV SCH ×3 (01:49→18:06)
--- NOTE | 2018-05-18 07:10 | Surgery Progress Note ---
Surgery Progress Note Date of Service May 18, 2018. Subjective afeb, min pain wbc nl Objective Vital Signs: Date Time Temp Pulse Resp B/P (MAP) Pulse Ox O2 Delivery O2 Flow Rate FiO2 05/18/18 00:00 37.1 88 20 138/80 (99) 96 Room Air 05/18/18 00:00 Room Air 05/17/18 22:17 36.9 88 16 148/83 (104) 95 Room Air 05/17/18 16:00 99 Room Air 05/17/18 15:48 37.0 80 18 156/90 (112) 99 Room Air 05/17/18 08:00 Room Air 05/17/18 07:32 37.0 82 18 135/87 (103) 97 Room Air General Appearance: no apparent distress Respiratory/Chest: no respiratory distress Abdomen: soft, + pertinent finding (mild lower abd tenderness) Laboratory Results: Results Past 24 Hours Test 05/18/18 06:11 Range/Units Assessment & Plan 05/18/18- doing well- Cont ice only today- discussed with pt pt has relativel significant diverticulosis Lt colon- I am considering outpt f/u with [facility] Colorectal surgery as she may benefit from laparoscopic/ ?robotic resection in future.Cont IV atbx acute diverticulitis w/ pericolonic inflammation Pain controlled, TTP slightly improved in lower quadrants. Tolerating chips/ sips, no N/V. afebrile. WBC WNL this AM - Continue IV Zosyn. Possibly start clears later today if she continues to do well. Continue conservative management per medicine. Please contact with questions or concerns. 05/16/18- cont npo exc ice 48 hrs acute diverticulitis w/ pericolonic inflammation Pain controlled, TTP slightly improved in lower quadrants. Tolerating chips/ sips, no N/V. afebrile. WBC WNL this AM - Continue IV Zosyn. Possibly start clears later today if she continues to do well. Continue conservative management per medicine. Please contact with questions or concerns. 05/16/18- cont npo exc ice 48 hrs
[2018-05-18 07:24] LABS: CREATININE 0.54 mg/dl (0.60-1.20)
[2018-05-18 07:41] VITALS: BP 130/79; PULSE 80; TEMP 36.9; O2SAT 95
[2018-05-18] MEDS: ASPIRIN 325 MG ECTAB PO SCH (08:14)
[2018-05-18] MEDS: ENOXAPARIN 40 MG/0.4 ML SYR SQ SCH (08:14)
--- NOTE | 2018-05-18 13:36 | Progress Note ---
Internal Med Progress Note Date of Service: May 18, 2018. Provider Documentation: SUBJECTIVE: The patient was seen and examined in medical floor She was admitted with them acute lower abdominal pain consistent with sigmoid diverticulitis She has been n.p.o. and on IV antibiotic and pain medications Condition is much better today and she has been started on ice chips only Generally weak but no other symptoms OBJECTIVE: Vital Signs-as noted below Exam: General-no apparent distress at rest Eyes-normal ENT-normal Neck-supple Lungs-clear to auscultate bilaterally Heart-regular, no murmur appreciated Abdomen-benign, soft, mildly tender left lower quadrant without guarding, bulging present Extremities-no edema Neuro-alert, awake and oriented Lab data as noted below. ASSESSMENT & PLAN: Sepsis secondary to Acute sigmoid diverticulitis. Met sepsis criteria on admission, febrile, tachycardia, elevated WBC, source diverticulitis CT abd/pelvis showed acute sigmoid diverticulitis. There is a 1.6 cm inflamed diverticulum versus small pericolonic abscess at this location Received Zosyn in the ER, Continued IV Zosyn Blood culture-negative Surgery on board recommended conservative management Improving and denies any significant symptoms Started on oral ice chips only Recurrent Diverticulitis CT Abd/pel showed acute sigmoid diverticulitis Surgery on board recommended conservative management Pain is controlled and denies any nausea and/or vomiting Plan for referral to [facility] colorectal surgery for possible laparoscopic procedure Hyperglycemia Hga1c 5.6 Stable Elevated BP Mostly due to pain Stable DVT px on Lovenox subq CODE STATUS FULL CODE DISPOSITION Likely discharge in 2-3 days Vital Signs: Date Time Temp Pulse Resp B/P (MAP) Pulse Ox O2 Delivery O2 Flow Rate FiO2 05/18/18 08:00 Room Air 05/18/18 07:41 36.9 80 18 130/79 (96) 95 Room Air 05/18/18 00:00 37.1 88 20 138/80 (99) 96 Room Air 05/18/18 00:00 Room Air 05/17/18 22:17 36.9 88 16 148/83 (104) 95 Room Air 05/17/18 16:00 99 Room Air 05/17/18 15:48 37.0 80 18 156/90 (112) 99 Room Air Lab Results: Results Past 24 Hours Test 05/18/18 06:11 Range/Units Creatinine 0.54 0.60-1.20 mg/dl Est Creatinine Clear Calc Drug Dose 95.7 ml/min Estimated GFR () 114.8 Estimated GFR (Non- 99.0
[2018-05-18] MEDS: NSS + 20MEQ KCL 1000ML 1,000 ML IV SCH (14:03)
[2018-05-18 15:45] VITALS: BP 172/79; PULSE 82; TEMP 37.6; O2SAT 95
[2018-05-18 16:45] VITALS: O2SAT 95
[2018-05-18] MEDS: KETOROLAC TROMETHAMINE 30 MG/ML VIAL IV PRN (18:55)
[2018-05-18 23:05] VITALS: BP 150/83; PULSE 84; TEMP 37.1; O2SAT 97
[2018-05-19] VITALS: O2SAT 95
[2018-05-19] MEDS: PIPERACILL/TAZOBAC IV 3.375 GM in DEXTROSE 5% 100ML 100 ML IV SCH ×3 (02:02→17:55)
[2018-05-19] MEDS: NSS + 20MEQ KCL 1000ML 1,000 ML IV SCH (03:28)
[2018-05-19] MEDS ORDERED: DEXTROSE 10% 1,000 ML IV PRN (06:27)
--- NOTE | 2018-05-19 06:27 | Surgery Progress Note ---
Surgery Progress Note Date of Service May 19, 2018. Subjective having crampy pain associated with bowel movements- loose afeb overnight, 37.6 yest afternoon Objective Vital Signs: Date Time Temp Pulse Resp B/P (MAP) Pulse Ox O2 Delivery O2 Flow Rate FiO2 05/19/18 00:00 95 Room Air 05/18/18 23:05 37.1 84 20 150/83 (105) 97 Room Air 05/18/18 16:45 95 Room Air 05/18/18 15:45 37.6 82 16 172/79 (110) 95 Room Air 05/18/18 08:00 Room Air 05/18/18 07:41 36.9 80 18 130/79 (96) 95 Room Air General Appearance: no apparent distress Respiratory/Chest: no respiratory distress Abdomen: soft, + pertinent finding (lower abd tenderness) Laboratory Results: Results Past 24 Hours Test 05/19/18 06:03 Range/Units Assessment & Plan 05/19/18- having loose bm w/ some crampy pain- not unexpected will allow clear liquids and monitor closely- add ppn- if pt does not tolerate clear liquids well- may need picc tpn, ? IV atbx at home. Re CT with contrast at some point 05/18/18- doing well- Cont ice only today- discussed with pt pt has relativel significant diverticulosis Lt colon- I am considering outpt f/u with [facility] Colorectal surgery as she may benefit from laparoscopic/ ?robotic resection in future.Cont IV atbx acute diverticulitis w/ pericolonic inflammation Pain controlled, TTP slightly improved in lower quadrants. Tolerating chips/ sips, no N/V. afebrile. WBC WNL this AM - Continue IV Zosyn. Possibly start clears later today if she continues to do well. Continue conservative management per medicine. Please contact with questions or concerns. 05/16/18- cont npo exc ice 48 hrs 05/18/18- doing well- Cont ice only today- discussed with pt pt has relativel significant diverticulosis Lt colon- I am considering outpt f/u with [facility] Colorectal surgery as she may benefit from laparoscopic/ ?robotic resection in future.Cont IV atbx acute diverticulitis w/ pericolonic inflammation Pain controlled, TTP slightly improved in lower quadrants. Tolerating chips/ sips, no N/V. afebrile. WBC WNL this AM - Continue IV Zosyn. Possibly start clears later today if she continues to do well. Continue conservative management per medicine. Please contact with questions or concerns. 05/16/18- cont npo exc ice 48 hrs
[2018-05-19] MEDS ORDERED: MoRPHine SULFATE 4 MG/ML 1 ML CARP\\VIAL IV PRN (06:30)
[2018-05-19] MEDS ORDERED: TPN/PPN CONSULT PHARMACY PRN (06:30)
[2018-05-19] MEDS ORDERED: MoRPHine SULFATE 2 MG/ML CARP IV PRN (06:30)
[2018-05-19 07:21] VITALS: BP 151/80; PULSE 83; TEMP 37.7; O2SAT 97
[2018-05-19] MEDS: ENOXAPARIN 40 MG/0.4 ML SYR SQ SCH (07:27)
[2018-05-19] MEDS: ASPIRIN 325 MG ECTAB PO SCH (07:30)
[2018-05-19] MEDS: KETOROLAC TROMETHAMINE 30 MG/ML VIAL IV PRN (07:31)
[2018-05-19 09:01] VITALS: TEMP 37
[2018-05-19 13:11] LABS: CALCIUM 8.5 mg/dl (8.5-10.1); CREATININE 0.53 mg/dl (0.60-1.20); POTASSIUM 4.1 mmol/L (3.5-5.1)
[2018-05-19 13:13] LABS: TOTAL PROTEIN 7.1 gm/dl (6.4-8.2)
[2018-05-19 13:53] LABS: PHOSPHORUS 3.4 mg/dl (2.5-4.9)
--- NOTE | 2018-05-19 14:30 | Progress Note ---
Internal Med Progress Note Date of Service: May 19, 2018. Provider Documentation: SUBJECTIVE: The patient was seen and examined in medical floor She was admitted with them acute lower abdominal pain consistent with sigmoid diverticulitis She has been n.p.o. and on IV antibiotic and pain medications Condition is much better today and she has been started on ice chips only Generally weak but no other symptoms 05/19; has had some abdominal pain with diarrhea this morning Taking clears orally and feeling better Denies any fever, chills, abdominal pain, nausea and/or vomiting OBJECTIVE: Vital Signs-as noted below Exam: General-no apparent distress at rest Eyes-normal ENT-normal Neck-supple Lungs-clear to auscultate bilaterally Heart-regular, no murmur appreciated Abdomen-benign, soft, non-tender left lower quadrant without guarding, bulging present Extremities-no edema Neuro-alert, awake and oriented Lab data as noted below. ASSESSMENT & PLAN: Sepsis secondary to Acute sigmoid diverticulitis. Met sepsis criteria on admission, febrile, tachycardia, elevated WBC, source diverticulitis CT abd/pelvis showed acute sigmoid diverticulitis. There is a 1.6 cm inflamed diverticulum versus small pericolonic abscess at this location Received Zosyn in the ER, Continued IV Zosyn Blood culture-negative Surgery on board recommended conservative management Has had some abdominal pain and diarrhea Could be secondary to antibiotic, will send stool for C. difficile Clinically better Discussed with surgery and plan is to continue IV antibiotic for the next 2 days May need prolonged IV antibiotic and PICC line Recurrent Diverticulitis CT Abd/pel showed acute sigmoid diverticulitis Surgery on board recommended conservative management Pain is controlled and denies any nausea and/or vomiting Plan for referral to [facility] colorectal surgery for possible laparoscopic procedure Remains stable Repeat CAT scan on Thursday Hyperglycemia Hga1c 5.6 Stable Elevated BP Mostly due to pain Stable DVT px on Lovenox subq CODE STATUS FULL CODE DISPOSITION Likely discharge in 2-3 days Vital Signs: Date Time Temp Pulse Resp B/P (MAP) Pulse Ox O2 Delivery O2 Flow Rate FiO2 05/19/18 09:01 37.0 05/19/18 08:00 Room Air 05/19/18 07:21 37.7 83 18 151/80 (103) 97 Room Air 05/19/18 00:00 95 Room Air 05/18/18 23:05 37.1 84 20 150/83 (105) 97 Room Air 05/18/18 16:45 95 Room Air 05/18/18 15:45 37.6 82 16 172/79 (110) 95 Room Air Lab Results: Results Past 24 Hours Test 05/19/18 06:03 Range/Units Sodium Level 137 136-145 mmol/L Potassium Level 4.1 3.5-5.1 mmol/L Chloride Level 107 98-107 mmol/L Carbon Dioxide Level 16 21-32 mmol/L Anion Gap 14.0 3-11 mmol/L Blood Urea Nitrogen 8 7-18 mg/dl Creatinine 0.53 0.60-1.20 mg/dl Est Creatinine Clear Calc Drug Dose 97.5 ml/min Estimated GFR () 115.5 Estimated GFR (Non- 99.6 BUN/Creatinine Ratio 16.2 10-20 Random Glucose 75 70-99 mg/dl Calcium Level 8.5 8.5-10.1 mg/dl Phosphorus Level 3.4 2.5-4.9 mg/dl Magnesium Level 2.2 1.8-2.4 mg/dl Total Bilirubin 1.4 0.2-1 mg/dl Direct Bilirubin 0.2 0-0.2 mg/dl Aspartate Amino Transf (AST/SGOT) 35 15-37 U/L Alanine Aminotransferase (ALT/SGPT) 90 12-78 U/L Alkaline Phosphatase 155 45-117 U/L Total Protein 7.1 6.4-8.2 gm/dl Albumin 3.0 3.4-5.0 gm/dl
[2018-05-19 15:21] VITALS: BP 154/80; PULSE 85; TEMP 37.5; O2SAT 98
[2018-05-19 15:50] VITALS: Ht 154.9 cm; Wt 72.9 kg
[2018-05-19] MEDS ORDERED: CUSTOM PERIPHERAL PN 1 BAG IV SCH (16:00)
[2018-05-19 23:16] VITALS: BP 156/82; PULSE 91; TEMP 37.7; O2SAT 96
[2018-05-20 01:01] VITALS: TEMP 37.4
[2018-05-20] MEDS: PIPERACILL/TAZOBAC IV 3.375 GM in DEXTROSE 5% 100ML 100 ML IV SCH ×3 (02:03→18:38)
[2018-05-20] MEDS: KETOROLAC TROMETHAMINE 30 MG/ML VIAL IV PRN ×2 (02:59→12:32)
[2018-05-20] MEDS ORDERED: HYDROCODONE/ACETAMIN 5/325MG TAB PO PRN ×2 (06:00)
--- NOTE | 2018-05-20 06:37 | Surgery Progress Note ---
Surgery Progress Note Date of Service May 20, 2018. Subjective Tm 37.7, afeb overnight some pain on clear liq, ppn Objective Vital Signs: Date Time Temp Pulse Resp B/P (MAP) Pulse Ox O2 Delivery O2 Flow Rate FiO2 05/20/18 01:01 37.4 05/20/18 00:01 Room Air 05/19/18 23:16 37.7 91 20 156/82 (106) 96 Room Air 05/19/18 16:00 Room Air 05/19/18 15:21 37.5 85 20 154/80 (104) 98 Room Air 05/19/18 09:01 37.0 05/19/18 08:00 Room Air 05/19/18 07:21 37.7 83 18 151/80 (103) 97 Room Air General Appearance: no apparent distress Respiratory/Chest: no respiratory distress Abdomen: soft Laboratory Results: Results Past 24 Hours Test 05/20/18 04:44 05/20/18 06:14 Range/Units Bedside Glucose 153 70-90 mg/dl Microbiology Results 05/19/18 C.difficile Toxin B Gene (PCR) - Final, Complete No C. difficile toxin B gene detected Assessment & Plan 05/20/18- some pain during night- toradol helped- may be crampy gas pain- has active bowel sounds- cont clears for now, ppn and IV atbx- needs 1-2 more days IV atbx- Dr Desai covering over weekend- considering [facility] at [facility]- pt has extensive diverticulosis of Lt colon 05/19/18- having loose bm w/ some crampy pain- not unexpected will allow clear liquids and monitor closely- add ppn- if pt does not tolerate clear liquids well- may need picc tpn, ? IV atbx at home. Re CT with contrast at some point 05/18/18- doing well- Cont ice only today- discussed with pt pt has relativel significant diverticulosis Lt colon- I am considering outpt f/u with [facility] as she may benefit from laparoscopic/ ?robotic resection in future.Cont IV atbx acute diverticulitis w/ pericolonic inflammation Pain controlled, TTP slightly improved in lower quadrants. Tolerating chips/ sips, no N/V. afebrile. WBC WNL this AM - Continue IV Zosyn. Possibly start clears later today if she continues to do well. Continue conservative management per medicine. Please contact with questions or concerns. 05/16/18- cont npo exc ice 48 hrs 05/19/18- having loose bm w/ some crampy pain- not unexpected will allow clear liquids and monitor closely- add ppn- if pt does not tolerate clear liquids well- may need picc tpn, ? IV atbx at home. Re CT with contrast at some point 05/18/18- doing well- Cont ice only today- discussed with pt pt has relativel significant diverticulosis Lt colon- I am considering outpt f/u with [facility] as she may benefit from laparoscopic/ ?robotic resection in future.Cont IV atbx acute diverticulitis w/ pericolonic inflammation Pain controlled, TTP slightly improved in lower quadrants. Tolerating chips/ sips, no N/V. afebrile. WBC WNL this AM - Continue IV Zosyn. Possibly start clears later today if she continues to do well. Continue conservative management per medicine. Please contact with questions or concerns. 05/16/18- cont npo exc ice 48 hrs
[2018-05-20 07:18] VITALS: BP 138/84; PULSE 77; TEMP 37; O2SAT 96
[2018-05-20] MEDS: ENOXAPARIN 40 MG/0.4 ML SYR SQ SCH (08:01)
[2018-05-20] MEDS: ASPIRIN 325 MG ECTAB PO SCH (08:04)
[2018-05-20 09:56] LABS: BASO % 0.2 %; BASO ABS # 0.02 K/uL (0-0.2); EOS % 0.5 %; EOS ABS # 0.06 K/uL (0-0.5); HEMATOCRIT 34.2 % (37-47); HEMOGLOBIN 11.6 g/dL (12.0-16.0); IG# 0.04 K/uL (0.00-0.02); LYMPH % 14.9 %; LYMPH ABS # 1.68 K/uL (1.2-3.4); MEAN CELL VOLUME 92.7 fL (80-100); MEAN CORPUSCULAR HEMOGLOBIN 31.4 pg (25-34); MEAN CORPUSCULAR HGB CONC 33.9 g/dl (32-36); MEAN PLATELET VOLUME 9.2 fL (7.4-10.4); MONO % 10.8 %; MONO ABS # 1.22 K/uL (0.11-0.59); NEUT % 73.2 %; NEUT ABS # 8.23 K/uL (1.4-6.5); PLATELET COUNT 356 K/uL (130-400); RED CELL DISTRIBUTION WIDTH CV 12.3 % (11.5-14.5); WHITE BLOOD COUNT 11.25 K/uL (4.8-10.8)
[2018-05-20 10:35] LABS: ALBUMIN 3.1 gm/dl (3.4-5.0); CALCIUM 8.8 mg/dl (8.5-10.1); CREATININE 0.58 mg/dl (0.60-1.20); PHOSPHORUS 2.9 mg/dl (2.5-4.9); POTASSIUM 3.4 mmol/L (3.5-5.1)
[2018-05-20] MEDS ORDERED: POTASSIUM CHLORIDE PWD 20 MEQ PACK PO ONE (12:15)
[2018-05-20] MEDS ORDERED: OPTIRAY 320 IV PRN (14:00)
[2018-05-20 14:47] VITALS: BP 144/81; PULSE 78; TEMP 37; O2SAT 97
--- NOTE | 2018-05-20 15:36 | Progress Note ---
Internal Med Progress Note Date of Service: May 20, 2018. Provider Documentation: SUBJECTIVE: The patient was seen and examined in medical floor She was admitted with them acute lower abdominal pain consistent with sigmoid diverticulitis She has been n.p.o. and on IV antibiotic and pain medications Condition is much better today and she has been started on ice chips only Generally weak but no other symptoms 05/19; has had some abdominal pain with diarrhea this morning Taking clears orally and feeling better Denies any fever, chills, abdominal pain, nausea and/or vomiting 05/20: Remains free of symptoms this morning Has had sharp pain in left lower quadrant last night bowel is moving and I did lose OBJECTIVE: Vital Signs-as noted below Exam: General-no apparent distress at rest Very anxious and frustrated with her medical condition Eyes-normal ENT-normal Neck-supple Lungs-clear to auscultate bilaterally Heart-regular, no murmur appreciated Abdomen-benign, soft, non-tender left lower quadrant without guarding, bulging present Extremities-no edema Neuro-alert, awake and oriented Lab data as noted below. ASSESSMENT & PLAN: Sepsis secondary to Acute sigmoid diverticulitis. Met sepsis criteria on admission, febrile, tachycardia, elevated WBC, source diverticulitis CT abd/pelvis showed acute sigmoid diverticulitis. There is a 1.6 cm inflamed diverticulum versus small pericolonic abscess at this location Received Zosyn in the ER, Continued IV Zosyn Blood culture-negative Surgery on board recommended conservative management Has had some abdominal pain and diarrhea Could be secondary to antibiotic, will send stool for C. difficile Discussed with surgery and plan is to continue IV antibiotic for the next 2 days May need prolonged IV antibiotic and PICC line Clinically and biochemically seem to be okay Continue IV antibiotic and only clears orally Repeat CT scan tomorrow morning, if improved will advance diet and likely to be discharged on Thursday on oral antibiotic Recurrent Diverticulitis CT Abd/pel showed acute sigmoid diverticulitis Surgery on board recommended conservative management Pain is controlled and denies any nausea and/or vomiting Plan for referral to [facility] colorectal surgery for possible laparoscopic procedure Remains stable Repeat CAT scan on Thursday Hyperglycemia Hga1c 5.6 Stable Elevated BP Mostly due to pain Stable DVT px on Lovenox subq CODE STATUS FULL CODE DISPOSITION Very frustrated with her current medical condition Has a strong family history of diverticulosis and diverticulitis Likely to have surgery in near future Vital Signs: Date Time Temp Pulse Resp B/P (MAP) Pulse Ox O2 Delivery O2 Flow Rate FiO2 05/20/18 14:47 37.0 78 18 144/81 (102) 97 05/20/18 08:00 Room Air 05/20/18 07:18 37.0 77 20 138/84 (102) 96 Room Air 05/20/18 01:01 37.4 05/20/18 00:01 Room Air 05/19/18 23:16 37.7 91 20 156/82 (106) 96 Room Air 05/19/18 16:00 Room Air Lab Results: Results Past 24 Hours Test 05/20/18 06:14 05/20/18 09:49 05/20/18 11:06 Range/Units Bedside Glucose 153 96 70-90 mg/dl White Blood Count 11.25 4.8-10.8 K/uL Red Blood Count 3.69 4.2-5.4 M/uL Hemoglobin 11.6 12.0-16.0 g/dL Hematocrit 34.2 37-47 % Mean Corpuscular Volume 92.7 80-100 fL Mean Corpuscular Hemoglobin 31.4 25-34 pg Mean Corpuscular Hemoglobin Concent 33.9 32-36 g/dl Platelet Count 356 130-400 K/uL Mean Platelet Volume 9.2 7.4-10.4 fL Neutrophils (%) (Auto) 73.2 % Lymphocytes (%) (Auto) 14.9 % Monocytes (%) (Auto) 10.8 % Eosinophils (%) (Auto) 0.5 % Basophils (%) (Auto) 0.2 % Neutrophils # (Auto) 8.23 1.4-6.5 K/uL Lymphocytes # (Auto) 1.68 1.2-3.4 K/uL Monocytes # (Auto) 1.22 0.11-0.59 K/uL Eosinophils # (Auto) 0.06 0-0.5 K/uL Basophils # (Auto) 0.02 0-0.2 K/uL RDW Standard Deviation 42.0 36.4-46.3 fL RDW Coefficient of Variation 12.3 11.5-14.5 % Immature Granulocyte % (Auto) 0.4 % Immature Granulocyte # (Auto) 0.04 0.00-0.02 K/uL Sodium Level 138 136-145 mmol/L Potassium Level 3.4 3.5-5.1 mmol/L Chloride Level 107 98-107 mmol/L Carbon Dioxide Level 23 21-32 mmol/L Anion Gap 8.0 3-11 mmol/L Blood Urea Nitrogen 7 7-18 mg/dl Creatinine 0.58 0.60-1.20 mg/dl Est Creatinine Clear Calc Drug Dose 88.5 ml/min Estimated GFR () 112.1 Estimated GFR (Non- 96.7 BUN/Creatinine Ratio 12.5 10-20 Random Glucose 96 70-99 mg/dl Calcium Level 8.8 8.5-10.1 mg/dl Phosphorus Level 2.9 2.5-4.9 mg/dl Magnesium Level 2.4 1.8-2.4 mg/dl C-Reactive Protein 13.80 0-0.29 mg/dl Albumin 3.1 3.4-5.0 gm/dl Triglycerides Level 64 0-150 mg/dl Microbiology Results 05/19/18 C.difficile Toxin B Gene (PCR) - Final, Complete No C. difficile toxin B gene detected
[2018-05-20] MEDS ORDERED: CUSTOM PERIPHERAL PN 1 BAG IV SCH (16:00)
[2018-05-21] VITALS: BP 153/71; PULSE 86; TEMP 37.8; O2SAT 95
[2018-05-21] MEDS ORDERED: ZOLPIDEM TARTRATE 5 MG TAB PO PRN
[2018-05-21] MEDS: PIPERACILL/TAZOBAC IV 3.375 GM in DEXTROSE 5% 100ML 100 ML IV SCH ×3 (02:05→18:33)
[2018-05-21 06:58] LABS: CALCIUM 8.3 mg/dl (8.5-10.1); CREATININE 0.53 mg/dl (0.60-1.20); PHOSPHORUS 3.2 mg/dl (2.5-4.9)
[2018-05-21 07:22] VITALS: BP 130/83; PULSE 76; TEMP 37.5; O2SAT 96
[2018-05-21] MEDS: ENOXAPARIN 40 MG/0.4 ML SYR SQ SCH (07:58)
[2018-05-21] MEDS: ASPIRIN 325 MG ECTAB PO SCH (07:59)
--- NOTE | 2018-05-21 09:28 | Surgery Progress Note ---
Surgery Progress Note Date of Service May 21, 2018. Subjective feeling well, had clear breakfast, low grade temp last night Objective Vital Signs: Date Time Temp Pulse Resp B/P (MAP) Pulse Ox O2 Delivery O2 Flow Rate FiO2 05/21/18 07:22 37.5 76 18 130/83 (99) 96 Room Air 05/21/18 00:05 Room Air 05/21/18 00:00 37.8 86 18 153/71 (98) 95 Room Air 05/20/18 16:00 Room Air 05/20/18 14:47 37.0 78 18 144/81 (102) 97 Abdomen: soft, + tenderness (minimal LLQ) Laboratory Results: Results Past 24 Hours Test 05/20/18 09:49 05/20/18 11:06 05/20/18 16:25 05/20/18 20:34 Range/Units White Blood Count 11.25 4.8-10.8 K/uL Red Blood Count 3.69 4.2-5.4 M/uL Hemoglobin 11.6 12.0-16.0 g/dL Hematocrit 34.2 37-47 % Mean Corpuscular Volume 92.7 80-100 fL Mean Corpuscular Hemoglobin 31.4 25-34 pg Mean Corpuscular Hemoglobin Concent 33.9 32-36 g/dl Platelet Count 356 130-400 K/uL Mean Platelet Volume 9.2 7.4-10.4 fL Neutrophils (%) (Auto) 73.2 % Lymphocytes (%) (Auto) 14.9 % Monocytes (%) (Auto) 10.8 % Eosinophils (%) (Auto) 0.5 % Basophils (%) (Auto) 0.2 % Neutrophils # (Auto) 8.23 1.4-6.5 K/uL Lymphocytes # (Auto) 1.68 1.2-3.4 K/uL Monocytes # (Auto) 1.22 0.11-0.59 K/uL Eosinophils # (Auto) 0.06 0-0.5 K/uL Basophils # (Auto) 0.02 0-0.2 K/uL RDW Standard Deviation 42.0 36.4-46.3 fL RDW Coefficient of Variation 12.3 11.5-14.5 % Immature Granulocyte % (Auto) 0.4 % Immature Granulocyte # (Auto) 0.04 0.00-0.02 K/uL Sodium Level 138 136-145 mmol/L Potassium Level 3.4 3.5-5.1 mmol/L Chloride Level 107 98-107 mmol/L Carbon Dioxide Level 23 21-32 mmol/L Anion Gap 8.0 3-11 mmol/L Blood Urea Nitrogen 7 7-18 mg/dl Creatinine 0.58 0.60-1.20 mg/dl Est Creatinine Clear Calc Drug Dose 88.5 ml/min Estimated GFR () 112.1 Estimated GFR (Non- 96.7 BUN/Creatinine Ratio 12.5 10-20 Random Glucose 96 70-99 mg/dl Calcium Level 8.8 8.5-10.1 mg/dl Phosphorus Level 2.9 2.5-4.9 mg/dl Magnesium Level 2.4 1.8-2.4 mg/dl C-Reactive Protein 13.80 0-0.29 mg/dl Albumin 3.1 3.4-5.0 gm/dl Triglycerides Level 64 0-150 mg/dl Bedside Glucose 96 95 136 70-90 mg/dl Test 05/21/18 00:23 05/21/18 06:00 05/21/18 06:03 Range/Units Bedside Glucose 134 120 70-90 mg/dl Sodium Level 137 136-145 mmol/L Potassium Level 4.0 3.5-5.1 mmol/L Chloride Level 106 98-107 mmol/L Carbon Dioxide Level 26 21-32 mmol/L Anion Gap 5.0 3-11 mmol/L Blood Urea Nitrogen 6 7-18 mg/dl Creatinine 0.53 0.60-1.20 mg/dl Est Creatinine Clear Calc Drug Dose 96.9 ml/min Estimated GFR () 115.5 Estimated GFR (Non- 99.6 BUN/Creatinine Ratio 12.2 10-20 Random Glucose 120 70-99 mg/dl Calcium Level 8.3 8.5-10.1 mg/dl Phosphorus Level 3.2 2.5-4.9 mg/dl Magnesium Level 2.5 1.8-2.4 mg/dl Assessment & Plan acute diverticulitis w/ pericolonic inflammation Tmax 37.8, WBC up to 11 from 8 but clinically doing well repeat CT this AM cont IV abx, PPN, clears seen with Dr. Lowery
--- NOTE | 2018-05-21 11:58 | DIAGNOSTIC IMAGING REPORT ---
ABDOMEN AND PELVIS CT WITH IV CONTRAST CT DOSE: 674.02 mGy.cm HISTORY: Acute lower abdominal pain with acute sigmoid diverticulitis. diverticulitis,R/O Abscess TECHNIQUE: Multiaxial CT images of the abdomen and pelvis were performed following the use of intravenous contrast. A dose lowering technique was utilized adhering to the principles of ALARA. COMPARISON STUDY: CT abdomen and pelvis 05/16/2018. FINDINGS: Mild subsegmental bibasilar atelectasis. No pneumatosis or pneumoperitoneum identified. The imaged inferior cardiac chambers are unremarkable. The gallbladder, spleen, liver, pancreas and adrenal glands are unremarkable. Mild unchanged intrahepatic and extrahepatic biliary ductal dilation. Kidneys are within normal limits with hypodense 9 mm lesion of the inferior pole left kidney suggesting renal cyst. Ureters and bladder are unremarkable. Prior hysterectomy. Thick enhancing beck about the left aspect of the vaginal cuff with a suggested colovaginal fistula seen best on the coronal images. Mild mixed plaquing about the aorta without aneurysm. IVC is unremarkable. Patent portal vein. No pathologically enlarged lymph nodes are identified. There is no bowel obstruction. Moderate circumferential wall thickening with mucosal hyperemia is again noted throughout the mid sigmoid colon compatible with ongoing acute sigmoid diverticulitis. There is mildly increased enlargement of a peripherally enhancing heterogeneous fluid collection which appears to be centered within the mesenteric wall of the sigmoid colon measuring 2.5 x 2.3 x 2.5 cm extending into the pericolonic tissues. Extensive associated mesenteric edema with trace free fluid. There is thickening of the adjacent peritoneum. No evidence of perforation. Air-fluid levels are noted throughout the colon more proximally suggesting diarrheal illness. Air-filled appendix appears noninflamed. Soft tissues are within normal limits. Bones appear to be intact. Multilevel facet arthropathy. IMPRESSION: 1. Progressively worsened acute sigmoid diverticulitis with increased size of a peripherally enhancing fluid collection compatible with abscess which appears to be intramural and extending into the adjacent pericolonic tissues measuring up to 2.5 cm. Reactive associated mesenteric edema with trace free pelvic fluid. 2. 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 3. No evidence of perforation. 4. Normal appendix. Electronically signed by: Tha Kay M.D. 05/21/2018 11:56 AM Dictated Date/Time: 05/21/2018 11:43 AM
--- NOTE | 2018-05-21 12:12 | Progress Note ---
Progress Note Date of Service May 21, 2018. Progress Note CT with collection/abscess 2.5 cm, previously 1.7 cm clinically stable and for now would continue IV abx, has been on Zosyn will ask ID for input if fevers/leukocytosis continue would discuss with radiology for possible drainage if remains stable may be able to d/c with home IV abx in a few days
--- NOTE | 2018-05-21 12:54 | Progress Note ---
Internal Med Progress Note Date of Service: May 21, 2018. Provider Documentation: SUBJECTIVE: The patient was seen and examined in medical floor She was admitted with them acute lower abdominal pain consistent with sigmoid diverticulitis She has been n.p.o. and on IV antibiotic and pain medications Condition is much better today and she has been started on ice chips only Generally weak but no other symptoms 05/19; has had some abdominal pain with diarrhea this morning Taking clears orally and feeling better Denies any fever, chills, abdominal pain, nausea and/or vomiting 05/20: Remains free of symptoms this morning Has had sharp pain in left lower quadrant last night bowel is moving 05/21 OBJECTIVE: Vital Signs-as noted below Exam: General-no apparent distress at rest Very anxious and frustrated with her medical condition Eyes-normal ENT-normal Neck-supple Lungs-clear to auscultate bilaterally Heart-regular, no murmur appreciated Abdomen-benign, soft, non-tender left lower quadrant without guarding, bulging present Extremities-no edema Neuro-alert, awake and oriented Lab data as noted below. ASSESSMENT & PLAN: Sepsis secondary to Acute sigmoid diverticulitis. Met sepsis criteria on admission, febrile, tachycardia, elevated WBC, source diverticulitis CT abd/pelvis showed acute sigmoid diverticulitis. There is a 1.6 cm inflamed diverticulum versus small pericolonic abscess at this location Received Zosyn in the ER, Continued IV Zosyn Blood culture-negative Surgery on board recommended conservative management Has had some abdominal pain and diarrhea Could be secondary to antibiotic, will send stool for C. difficile Discussed with surgery and plan is to continue IV antibiotic for the next 2 days May need prolonged IV antibiotic and PICC line Clinically and biochemically seem to be okay Continue IV antibiotic and only clears orally Repeat CT scan tomorrow morning, if improved will advance diet and likely to be discharged on Thursday on oral antibiotic CT report is worse but clinically the patient is better and appropriate as per Surgery team Will get PICC line and ID consult has been placed by surgery team Recurrent Diverticulitis CT Abd/pel showed acute sigmoid diverticulitis Surgery on board recommended conservative management Pain is controlled and denies any nausea and/or vomiting Plan for referral to [facility] colorectal surgery for possible laparoscopic procedure Remains stable Repeat CAT scan on Thursday-Radiologically worse but clinically better Will get PICC line for prolonged antibiotics Hyperglycemia Hga1c 5.6 Stable Elevated BP Mostly due to pain Stable DVT px on Lovenox subq CODE STATUS FULL CODE DISPOSITION Very frustrated with her current medical condition Has a strong family history of diverticulosis and diverticulitis Likely to have surgery in near future Vital Signs: Date Time Temp Pulse Resp B/P (MAP) Pulse Ox O2 Delivery O2 Flow Rate FiO2 05/21/18 08:00 Room Air 05/21/18 07:22 37.5 76 18 130/83 (99) 96 Room Air 05/21/18 00:05 Room Air 05/21/18 00:00 37.8 86 18 153/71 (98) 95 Room Air 05/20/18 16:00 Room Air 05/20/18 14:47 37.0 78 18 144/81 (102) 97 Lab Results: Results Past 24 Hours Test 05/20/18 16:25 05/20/18 20:34 05/21/18 00:23 05/21/18 06:00 Range/Units Bedside Glucose 95 136 134 120 70-90 mg/dl Test 05/21/18 06:03 05/21/18 11:26 Range/Units Sodium Level 137 136-145 mmol/L Potassium Level 4.0 3.5-5.1 mmol/L Chloride Level 106 98-107 mmol/L Carbon Dioxide Level 26 21-32 mmol/L Anion Gap 5.0 3-11 mmol/L Blood Urea Nitrogen 6 7-18 mg/dl Creatinine 0.53 0.60-1.20 mg/dl Est Creatinine Clear Calc Drug Dose 96.9 ml/min Estimated GFR () 115.5 Estimated GFR (Non- 99.6 BUN/Creatinine Ratio 12.2 10-20 Random Glucose 120 70-99 mg/dl Calcium Level 8.3 8.5-10.1 mg/dl Phosphorus Level 3.2 2.5-4.9 mg/dl Magnesium Level 2.5 1.8-2.4 mg/dl Bedside Glucose 108 70-90 mg/dl
--- NOTE | 2018-05-21 13:06 | Clinical Documentation Query ---
CLINICAL DOCUMENTATION QUERY 67-y/o female who presents septic from acute sigmoid diverticulitis. She has basically been NPO since admission and now placed on PPN. In your clinical opinion is this patient being managed for: ( + ) Mild protein-calorie malnutrition ( ) Moderate protein-calorie malnutrition ( ) Not Agree ( ) Other explanation of clinical findings (No explanation is considered a No Response) ( ) Unable to determine ( ) Need to Discuss (Phone CDS or qliq) (No discussion is considered a No Response) The medical record reflects the following clinical findings, treatment, and risk factors. Clinical Indicators: 0.8 kg loss in weight since arrival here (1%). RBC 3.69, Albumin 3.1, Treatment: PPN, dietary consult, Risk Factors: Age, acute diverticulitis, prolonged NPO time Please clarify and document your clinical opinion in the progress notes and discharge summary. Terms such as "probable", "suspected", "likely", "questionable", "possible", or "still to be ruled out" are acceptable. IF IN AGREEMENT, YOU MUST DOCUMENT ABOVE DIAGNOSTIC STATEMENT IN DAILY PROGRESS NOTES AND DISCHARGE SUMMARY. This document is not part of the patient's record. Malnutrition Characteristics (2 of 6) in Acute Illness/Injury CHARACTERISTICS MODERATE MALNUTRITION SEVERE MALNUTRITION ENERGY INTAKE <75% of estimated energyrequirement for >7 days <50% of estimated energyrequirement for >5 days WEIGHT LOSS 1-2%/1 week 5%/1 month 7.5%/3 months >1-2%/1 week >5%/1 month >7.5%/3 months BODY FAT*loss of SQ fat from the orbits,triceps, or fat overlying the ribs MILD MODERATE MUSCLE MASS*muscle wasting at the temples,clavicles, shoulders, interosseousspaces,scapula, thigh, calf MILD MODERATE FLUID ACCUMULATION*localized or generalized edemaof the extremities, vulva, scrotumweight loss may be masked byedema MILD MODERATE-SEVERE AIRPORT PLANNER STRENGTH N/A measurably decreased perthe device's standards Thank You, Elias Romero RN [phone] & via qlicCONNECT
[2018-05-21 15:53] VITALS: BP 143/84; PULSE 79; TEMP 37.1; O2SAT 99
[2018-05-21] MEDS ORDERED: CUSTOM PERIPHERAL PN 1 BAG IV SCH (16:00)
[2018-05-21 16:09] VITALS: O2SAT 99
--- NOTE | 2018-05-21 16:21 | Progress Note ---
Internal Med Progress Note Date of Service: May 21, 2018. Provider Documentation: SUBJECTIVE: The patient was seen and examined in medical floor She was admitted with them acute lower abdominal pain consistent with sigmoid diverticulitis She has been n.p.o. and on IV antibiotic and pain medications Condition is much better today and she has been started on ice chips only Generally weak but no other symptoms 05/19; has had some abdominal pain with diarrhea this morning Taking clears orally and feeling better Denies any fever, chills, abdominal pain, nausea and/or vomiting 05/20: Remains free of symptoms this morning Has had sharp pain in left lower quadrant last night bowel is moving 05/21; still has some diarrhea but denies any abdominal pain No fever or chills Has been tolerating PPN, minimal clears orally OBJECTIVE: Vital Signs-as noted below Exam: General-no apparent distress at rest Very anxious and frustrated with her medical condition Eyes-normal ENT-normal Neck-supple Lungs-clear to auscultate bilaterally Heart-regular, no murmur appreciated Abdomen-benign, soft,MINIMALLY tender left lower quadrant without guarding, bulging present Extremities-no edema Neuro-alert, awake and oriented Lab data as noted below. ASSESSMENT & PLAN: Sepsis secondary to Acute sigmoid diverticulitis. Met sepsis criteria on admission, febrile, tachycardia, elevated WBC, source diverticulitis CT abd/pelvis showed acute sigmoid diverticulitis. There is a 1.6 cm inflamed diverticulum versus small pericolonic abscess at this location Received Zosyn in the ER, Continued IV Zosyn Blood culture-negative Surgery on board recommended conservative management Has had some abdominal pain and diarrhea Could be secondary to antibiotic, will send stool for C. difficile Discussed with surgery and plan is to continue IV antibiotic for the next 2 days May need prolonged IV antibiotic and PICC line Clinically and biochemically seem to be okay Continue IV antibiotic and only clears orally Repeat CT scan tomorrow morning, if improved will advance diet and likely to be discharged on Thursday on oral antibiotic CT report is worse but clinically the patient is better and appropriate as per Surgery team Will get PICC line and ID consult has been placed by surgery team Recurrent Diverticulitis CT Abd/pel showed acute sigmoid diverticulitis Surgery on board recommended conservative management Pain is controlled and denies any nausea and/or vomiting Plan for referral to [facility] colorectal surgery for possible laparoscopic procedure Remains stable Repeat CAT scan on Thursday-Radiologically worse but clinically better Will get PICC line for prolonged antibiotics Hyperglycemia Hga1c 5.6 Stable Elevated BP Mostly due to pain Stable DVT px on Lovenox subq CODE STATUS FULL CODE DISPOSITION Very frustrated with her current medical condition Has a strong family history of diverticulosis and diverticulitis Likely to have surgery in near future Vital Signs: Date Time Temp Pulse Resp B/P (MAP) Pulse Ox O2 Delivery O2 Flow Rate FiO2 05/21/18 15:53 37.1 79 18 143/84 (103) 99 Room Air 05/21/18 08:00 Room Air 05/21/18 07:22 37.5 76 18 130/83 (99) 96 Room Air 05/21/18 00:05 Room Air 05/21/18 00:00 37.8 86 18 153/71 (98) 95 Room Air Lab Results: Results Past 24 Hours Test 05/20/18 16:25 05/20/18 20:34 05/21/18 00:23 05/21/18 06:00 Range/Units Bedside Glucose 95 136 134 120 70-90 mg/dl Test 05/21/18 06:03 05/21/18 11:26 Range/Units Sodium Level 137 136-145 mmol/L Potassium Level 4.0 3.5-5.1 mmol/L Chloride Level 106 98-107 mmol/L Carbon Dioxide Level 26 21-32 mmol/L Anion Gap 5.0 3-11 mmol/L Blood Urea Nitrogen 6 7-18 mg/dl Creatinine 0.53 0.60-1.20 mg/dl Est Creatinine Clear Calc Drug Dose 96.9 ml/min Estimated GFR () 115.5 Estimated GFR (Non- 99.6 BUN/Creatinine Ratio 12.2 10-20 Random Glucose 120 70-99 mg/dl Calcium Level 8.3 8.5-10.1 mg/dl Phosphorus Level 3.2 2.5-4.9 mg/dl Magnesium Level 2.5 1.8-2.4 mg/dl Bedside Glucose 108 70-90 mg/dl
--- NOTE | 2018-05-21 16:28 | Medical Consult ---
Consultation Date of Consultation: May 21, 2018. Attending Physician: Rosita Marie M.D. Reason for Consultation: Diverticulitis, developing abscess History of Present Illness 67-year-old female prior history diverticulitis, was admitted May 16 with 1 day history of severe lower quadrant abdominal pain. Was found to have evidence of sigmoid diverticulitis with possible early abscess development, as well as possible colovaginal fistula. Patient was started empirically on Zosyn , blood cultures remain negative. Two days ago, patient developed marked worsening abdominal pain, and subsequent follow-up CT scan showed worsening with evidence developing abscess. Over the last 24 hours, patient has showed improvement with decrease in pain, remains afebrile, no other systemic complaints. Currently rates abdominal pain 0. Past Medical/Surgical History Medical Problems: (1) Acute diverticulitis Status: Acute (2) Fever Status: Acute (3) Leukocytosis Status: Acute Family History Noncontributory Social History Smoking Status: Never Smoker Smokeless Tobacco Use: No Marital Status: Housing Status: lives with significant other Allergies Coded Allergies: No Known Allergies (Verified , 05/16/18) Current Inpatient Medications Current Inpatient Medications Medications (Trade) Dose Ordered Sig/Sally Route Start Time Stop Time Status Last Admin Dose Admin Enoxaparin Sodium (Lovenox Inj) 40 mg Q24H SQ 05/17/18 09:00 06/16/18 08:59 Acetaminophen (Tylenol Tab) 650 mg Q4H PRN PO 05/16/18 20:45 06/15/18 20:44 Tramadol HCl (Ultram Tab) not relieved ... Q6H PRN PO 05/16/18 20:45 06/15/18 20:44 Ketorolac Tromethamine (Toradol Inj) 15 mg Q6H PRN IV 05/16/18 20:45 05/21/18 20:44 05/20/18 12:32 15 MG Prochlorperazine Edisylate 5 mg/ Syringe 5 ml @ 5 mls/min Q6H PRN IV 05/16/18 20:45 06/15/18 20:44 Aspirin (Ecotrin Tab) 325 mg DAILY PO 05/17/18 09:00 06/16/18 08:59 05/18/18 08:14 325 MG Miscellaneous Information (Consult) 1 ea UD PRN N/A 05/17/18 09:00 06/16/18 08:59 Piperacillin Sod/ Tazobactam Sod 3.375 gm/Dextrose 115 ml @ 28.75 mls/ hr Q8H IV 05/17/18 02:00 05/27/18 01:59 05/21/18 10:05 28.75 MLS/HR Morphine Sulfate (MoRPHine SULFATE INJ) 2 mg Q4H PRN IV 05/19/18 06:30 06/02/18 06:29 Morphine Sulfate (MoRPHine SULFATE INJ) 4 mg Q4H PRN IV 05/19/18 06:30 06/02/18 06:29 Miscellaneous Information (Pharmacy Tpn/ Ppn Consult Active) 1 ea UD PRN N/A 05/19/18 06:30 06/18/18 06:29 Acetaminophen/ Hydrocodone Bitart ([place] 5/325 Tab) 1 tab Q4 PRN PO 05/20/18 06:00 06/03/18 05:59 Acetaminophen/ Hydrocodone Bitart ([place] 5/325 Tab) 2 tab Q4 PRN PO 05/20/18 06:00 06/03/18 05:59 Ioversol (Optiray 320) 100 ml UD PRN IV 05/20/18 14:00 05/24/18 13:59 Zolpidem Tartrate (Ambien Tab) 5 mg HS PRN PO 05/21/18 00:00 06/20/18 00:00 Nutrition (Parenteral) 0 ml @ 0 mls/hr TODAY@1600 IV 05/21/18 16:00 05/22/18 15:59 Review of Systems All systems were reviewed and are negative except as per HPI Physical Exam Date Time Temp Pulse Resp B/P (MAP) Pulse Ox O2 Delivery O2 Flow Rate FiO2 05/21/18 15:53 37.1 79 18 143/84 (103) 99 Room Air 05/21/18 08:00 Room Air 05/21/18 07:22 37.5 76 18 130/83 (99) 96 Room Air 05/21/18 00:05 Room Air 05/21/18 00:00 37.8 86 18 153/71 (98) 95 Room Air General Appearance: WD/WN, no apparent distress Head: normocephalic, atraumatic Eyes: normal inspection, EOMI, sclerae normal ENT: normal ENT inspection, hearing grossly normal, pharynx normal Neck: supple, no adenopathy, thyroid normal, trachea midline Respiratory/Chest: chest non-tender, lungs clear, normal breath sounds, no respiratory distress Cardiovascular: regular rate, rhythm, no gallop, no murmur Abdomen/GI: normal bowel sounds, soft, no organomegaly, + tenderness Back: normal inspection, no CVA tenderness Extremities/Musculoskelatal: no calf tenderness, normal capillary refill, non- tender Neurologic/Psych: alert, normal mood/affect, oriented x 3 Skin: normal color, warm/dry, no rash Lymphatic: no adenopathy Laboratory Results RUN DATE: 05/18/18 [facility] LAB PAGE 1 RUN TIME: 724 Specimen Inquiry PATIENT: VERONIKA PARNELL LOC: C.MS2W U # : [id number] AGE/SX: 67/F ROOM: [facility] REG : 05/16/[address]: Boubacar Lilly M.D. : 1950 BED: 2 DIS : STATUS: ADM IN TLOC: SPEC #: [id number] LILIANA: 05/16/18 STATUS: RES REQ #: [id number] RECD: 05/16/18 [facility] DR: Anthony Ruiz M.D. SOURCE: BLOOD ENTR: 05/16/[address] [facility] [address]: Pal Chavez M.D. SPDESC: No Doctor, Assigned ORDERED: BLOOD CULTURE COMMENTS: Comments to [facility] lab bld Procedure Result Verified Site BLD CULT Preliminary 05/18/18 NO GROWTH TO DATE. Last 24 Hours Test 05/20/18 16:25 05/20/18 20:34 05/21/18 00:23 05/21/18 06:00 Bedside Glucose 95 mg/dl 136 mg/dl 134 mg/dl 120 mg/dl Test 05/21/18 06:03 05/21/18 11:26 Sodium Level 137 mmol/L Potassium Level 4.0 mmol/L Chloride Level 106 mmol/L Carbon Dioxide Level 26 mmol/L Anion Gap 5.0 mmol/L Blood Urea Nitrogen 6 mg/dl Creatinine 0.53 mg/dl Est Creatinine Clear Calc Drug Dose 96.9 ml/min Estimated GFR () 115.5 Estimated GFR (Non- 99.6 BUN/Creatinine Ratio 12.2 Random Glucose 120 mg/dl Calcium Level 8.3 mg/dl Phosphorus Level 3.2 mg/dl Magnesium Level 2.5 mg/dl Bedside Glucose 108 mg/dl Patient Name: VERONIKA PARNELL Unit Number: [id number] Dictated: 05/21/181142 Transcribed: 05/21/181142 JRB Printed Date/Time: [~ rep prt dt]/[~ rep prt tm] [~ rep ct labl] - [~ rep ct ivnm] [facility] [place] [address] Dictated: 05/21/181142 Transcribed: 05/21/181142 JRB Printed Date/Time: [~ rep prt dt]/[~ rep prt tm] [~ rep ct labl] - [~ rep ct ivnm] CC: Rosita Marie M.D. No Doctor, Assigned Endcc: [~ rep ct add3]] ABDOMEN AND PELVIS CT WITH IV CONTRAST CT DOSE: 674.02 mGy.cm HISTORY: Acute lower abdominal pain with acute sigmoid diverticulitis. diverticulitis,R/O Abscess TECHNIQUE: Multiaxial CT images of the abdomen and pelvis were performed following the use of intravenous contrast. A dose lowering technique was utilized adhering to the principles of ALARA. COMPARISON STUDY: CT abdomen and pelvis 05/16/2018. FINDINGS: Mild subsegmental bibasilar atelectasis. No pneumatosis or pneumoperitoneum identified. The imaged inferior cardiac chambers are unremarkable. The gallbladder, spleen, liver, pancreas and adrenal glands are unremarkable. Mild unchanged intrahepatic and extrahepatic biliary ductal dilation. Kidneys are within normal limits with hypodense 9 mm lesion of the inferior pole left kidney suggesting renal cyst. Ureters and bladder are unremarkable. Prior hysterectomy. Thick enhancing beck about the left aspect of the vaginal cuff with a suggested colovaginal fistula seen best on the coronal images. Mild mixed plaquing about the aorta without aneurysm. IVC is unremarkable. Patent portal vein. No pathologically enlarged lymph nodes are identified. There is no bowel obstruction. Moderate circumferential wall thickening with mucosal hyperemia is again noted throughout the mid sigmoid colon compatible with ongoing acute sigmoid diverticulitis. There is mildly increased enlargement of a peripherally enhancing heterogeneous fluid collection which appears to be centered within the mesenteric wall of the sigmoid colon measuring 2.5 x 2.3 x 2.5 cm extending into the pericolonic tissues. Extensive associated mesenteric edema with trace free fluid. There is thickening of the adjacent peritoneum. No evidence of perforation. Air-fluid levels are noted throughout the colon more proximally suggesting diarrheal illness. Air-filled appendix appears noninflamed. Soft tissues are within normal limits. Bones appear to be intact. Multilevel facet arthropathy. IMPRESSION: 1. Progressively worsened acute sigmoid diverticulitis with increased size of a peripherally enhancing fluid collection compatible with abscess which appears to be intramural and extending into the adjacent pericolonic tissues measuring up to 2.5 cm. Reactive associated mesenteric edema with trace free pelvic fluid. 2. 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 3. No evidence of perforation. 4. Normal appendix. Electronically signed by: Tha Kay M.D. 05/21/2018 11:56 AM Dictated Date/Time: 05/21/2018 11:43 AM The status of this report is Signed. Draft = Not yet reviewed or approved by Radiologist. Signed = Reviewed and approved by Radiologist. <AttendingPhy>Rosita Marie M.D.</AttendingPhy> <FamilyPhy>No Doctor, Assigned</FamilyPhy> <PrimaryPhy>No Doctor, Assigned</PrimaryPhy> <UnitNumber> [id number]</UnitNumber> <VisitNumber>[id number]</VisitNumber> <PatientName> CHRISTOGERONIMOVERONIKA</PatientName> <DateOfBirth>1950</DateOfBirth> <Location> C.MS2W</Location> <ServiceDate>05/16/18</ServiceDate> <MNE>ESINDI</MNE> < OrderingPhy>Rosita Marie M.D.</OrderingPhy> <OrderingPhyMNE>f rep ord dr conti</OrderingPhyMNE> <DictatingPhyMNE>f rep dict dr conti</DictatingPhyMNE> < CCListMNE>f rep ct mne</CCListMNE> <AdmittingPhyMNE>f pt admit dr conti</ AdmittingPhyMNE> <AttendingPhyMNE>f pt attend dr conti</AttendingPhyMNE> <ConsultingPhyMNE>f pt consult dr conti</ConsultingPhyMNE> <FamilyPhyMNE>f pt fam dr conti</FamilyPhyMNE> <OtherPhyMNE>f pt other dr conti</OtherPhyMNE> < PrimaryPhyMNE>f pt prim care dr conti</PrimaryPhyMNE> <ReferringPhyMNE>f pt referring dr conti</ReferringPhyMNE> Assessment & Plan 67-year-old female with recurrent diverticulitis now with perforation and abscess formation, suspect she did this earlier in the week, now appears to be showing some improvement. Agree that she will likely need more prolonged course of IV antibiotics, likely in the range of at least 2-3 weeks. Would recommend ertapenem 1 g daily to allow easiest outpatient therapy. Will follow.
[2018-05-21 23:19] VITALS: BP 139/82; PULSE 82; TEMP 37.7; O2SAT 97
[2018-05-22 00:05] VITALS: O2SAT 99
[2018-05-22] MEDS: PIPERACILL/TAZOBAC IV 3.375 GM in DEXTROSE 5% 100ML 100 ML IV SCH ×3 (02:09→18:30)
[2018-05-22 07:13] LABS: CALCIUM 8.6 mg/dl (8.5-10.1); CREATININE 0.53 mg/dl (0.60-1.20); PHOSPHORUS 3.8 mg/dl (2.5-4.9); POTASSIUM 4.1 mmol/L (3.5-5.1)
[2018-05-22 07:46] VITALS: BP 151/82; PULSE 73; TEMP 37.2; O2SAT 98
[2018-05-22] MEDS: ASPIRIN 325 MG ECTAB PO SCH (07:58)
[2018-05-22] MEDS: ENOXAPARIN 40 MG/0.4 ML SYR SQ SCH (07:58)
--- NOTE | 2018-05-22 10:15 | Surgery Progress Note ---
Surgery Progress Note Date of Service May 22, 2018. Subjective + feeling well, + bowel movement, + flatus, + nausea, + vomiting, + diet ( tolerating clear liquids) Pain almost resolved today Objective Vital Signs: Date Time Temp Pulse Resp B/P (MAP) Pulse Ox O2 Delivery O2 Flow Rate FiO2 05/22/18 08:00 Room Air 05/22/18 07:46 37.2 73 17 151/82 (105) 98 Room Air 05/22/18 00:05 99 Room Air 05/21/18 23:19 37.7 82 18 139/82 (101) 97 Room Air 05/21/18 16:09 99 Room Air 05/21/18 15:53 37.1 79 18 143/84 (103) 99 Room Air Abdomen: non distended, soft, + tenderness (mild in LLQ) Laboratory Results: Results Past 24 Hours Test 05/21/18 11:26 05/22/18 00:03 05/22/18 06:20 05/22/18 06:51 Range/Units Bedside Glucose 108 123 98 70-90 mg/dl Sodium Level 136 136-145 mmol/L Potassium Level 4.1 3.5-5.1 mmol/L Chloride Level 105 98-107 mmol/L Carbon Dioxide Level 23 21-32 mmol/L Anion Gap 8.0 3-11 mmol/L Blood Urea Nitrogen 7 7-18 mg/dl Creatinine 0.53 0.60-1.20 mg/dl Est Creatinine Clear Calc Drug Dose 96.7 ml/min Estimated GFR () 115.5 Estimated GFR (Non- 99.6 BUN/Creatinine Ratio 12.6 10-20 Random Glucose 111 70-99 mg/dl Calcium Level 8.6 8.5-10.1 mg/dl Phosphorus Level 3.8 2.5-4.9 mg/dl Magnesium Level 2.4 1.8-2.4 mg/dl Assessment & Plan Acute diverticulitis with intramural abscess increased in size to ~2.5 cm Continue IV antibiotics Plans for possible home IV antibiotics underway Can increase to full liquids today
[2018-05-22 15:27] VITALS: BP 159/83; PULSE 77; TEMP 36.9; O2SAT 98
[2018-05-22] MEDS ORDERED: CUSTOM PERIPHERAL PN 1 BAG IV SCH (16:00)
--- NOTE | 2018-05-22 18:51 | Progress Note ---
Internal Med Progress Note Date of Service: May 22, 2018. Provider Documentation: SUBJECTIVE: The patient was seen and examined in medical floor She was admitted with them acute lower abdominal pain consistent with sigmoid diverticulitis She has been n.p.o. and on IV antibiotic and pain medications Condition is much better today and she has been started on ice chips only Generally weak but no other symptoms 05/19; has had some abdominal pain with diarrhea this morning Taking clears orally and feeling better Denies any fever, chills, abdominal pain, nausea and/or vomiting 05/20: Remains free of symptoms this morning Has had sharp pain in left lower quadrant last night bowel is moving 05/21; still has some diarrhea but denies any abdominal pain No fever or chills Has been tolerating PPN, minimal clears orally 05/22; she feels much better today Denies any symptoms and feels like almost normal OBJECTIVE: Vital Signs-as noted below Exam: General-no apparent distress at rest Very anxious and frustrated with her medical condition Eyes-normal ENT-normal Neck-supple Lungs-clear to auscultate bilaterally Heart-regular, no murmur appreciated Abdomen-benign, soft,non tender left lower quadrant without guarding, bulging present Extremities-no edema Neuro-alert, awake and oriented Lab data as noted below. ASSESSMENT & PLAN: Sepsis secondary to Acute sigmoid diverticulitis. Met sepsis criteria on admission, febrile, tachycardia, elevated WBC, source diverticulitis CT abd/pelvis showed acute sigmoid diverticulitis. There is a 1.6 cm inflamed diverticulum versus small pericolonic abscess at this location Received Zosyn in the ER, Continued IV Zosyn Blood culture-negative Surgery on board recommended conservative management Has had some abdominal pain and diarrhea Could be secondary to antibiotic, will send stool for C. difficile Discussed with surgery and plan is to continue IV antibiotic for the next 2 days May need prolonged IV antibiotic and PICC line Clinically and biochemically seem to be okay Continue IV antibiotic and only clears orally CT report is worse but clinically the patient is better and appropriate as per Surgery team Status post placement of PICC line for prolonged IV antibiotic Appreciate ID input and recommendation We will slowly advance diet as tolerated Probable discharge on Thursday on IV antibiotic Recurrent Diverticulitis CT Abd/pel showed acute sigmoid diverticulitis Surgery on board recommended conservative management Pain is controlled and denies any nausea and/or vomiting Plan for referral to [facility] colorectal surgery for possible laparoscopic procedure Remains stable Repeat CAT scan on Thursday-Radiologically worse but clinically better Will get PICC line for prolonged antibiotics We will need to appointment with colorectal surgery at [place] on discharge Mild Protein Calorie Malnutrition Likely secondary to Poor eating due to diverticular disease Started on TPN for a short term Hyperglycemia Hga1c 5.6 Stable Elevated BP Mostly due to pain Stable DVT px on Lovenox subq CODE STATUS FULL CODE DISPOSITION Very frustrated with her current medical condition Has a strong family history of diverticulosis and diverticulitis Likely to have surgery in near future Likely discharge on Thursday on IV ertapenem Vital Signs: Date Time Temp Pulse Resp B/P (MAP) Pulse Ox O2 Delivery O2 Flow Rate FiO2 05/23/18 07:09 36.9 71 18 152/80 (104) 98 Room Air 05/22/18 22:59 37.2 79 18 144/75 (98) 98 Room Air 05/22/18 20:05 Room Air 05/22/18 15:27 36.9 77 18 159/83 (108) 98 Room Air Lab Results: Results Past 24 Hours Test 05/22/18 11:52 05/22/18 18:34 05/23/18 00:10 05/23/18 05:45 Range/Units Bedside Glucose 111 140 101 70-90 mg/dl White Blood Count 6.90 4.8-10.8 K/uL Red Blood Count 3.63 4.2-5.4 M/uL Hemoglobin 11.3 12.0-16.0 g/dL Hematocrit 34.1 37-47 % Mean Corpuscular Volume 93.9 80-100 fL Mean Corpuscular Hemoglobin 31.1 25-34 pg Mean Corpuscular Hemoglobin Concent 33.1 32-36 g/dl Platelet Count 432 130-400 K/uL Mean Platelet Volume 9.5 7.4-10.4 fL Neutrophils (%) (Auto) 52.1 % Lymphocytes (%) (Auto) 31.7 % Monocytes (%) (Auto) 10.6 % Eosinophils (%) (Auto) 4.2 % Basophils (%) (Auto) 1.3 % Neutrophils # (Auto) 3.59 1.4-6.5 K/uL Lymphocytes # (Auto) 2.19 1.2-3.4 K/uL Monocytes # (Auto) 0.73 0.11-0.59 K/uL Eosinophils # (Auto) 0.29 0-0.5 K/uL Basophils # (Auto) 0.09 0-0.2 K/uL RDW Standard Deviation 41.3 36.4-46.3 fL RDW Coefficient of Variation 12.1 11.5-14.5 % Immature Granulocyte % (Auto) 0.1 % Immature Granulocyte # (Auto) 0.01 0.00-0.02 K/uL Test 05/23/18 05:58 Range/Units Bedside Glucose 104 70-90 mg/dl
--- NOTE | 2018-05-22 21:35 | Infectious Disease Progress Nt ---
Progress Note Date of Service May 22, 2018. Subjective Pt evaluation today including: conversation w/ patient, physical exam, chart review, lab review, review of studies, conversation w/ medical device sales consultant, review of inpatient medication list Patient feeling somewhat better today, with less abdominal pain. Remains afebrile. No other new complaints. All Other Systems: Reviewed and Negative Medications Current Inpatient Medications Medications (Trade) Dose Ordered Sig/Sally Route Start Time Stop Time Status Last Admin Dose Admin Enoxaparin Sodium (Lovenox Inj) 40 mg Q24H SQ 05/17/18 09:00 06/16/18 08:59 Acetaminophen (Tylenol Tab) 650 mg Q4H PRN PO 05/16/18 20:45 06/15/18 20:44 Tramadol HCl (Ultram Tab) not relieved ... Q6H PRN PO 05/16/18 20:45 06/15/18 20:44 Prochlorperazine Edisylate 5 mg/ Syringe 5 ml @ 5 mls/min Q6H PRN IV 05/16/18 20:45 06/15/18 20:44 Aspirin (Ecotrin Tab) 325 mg DAILY PO 05/17/18 09:00 06/16/18 08:59 05/18/18 08:14 325 MG Miscellaneous Information (Consult) 1 ea UD PRN N/A 05/17/18 09:00 06/16/18 08:59 Piperacillin Sod/ Tazobactam Sod 3.375 gm/Dextrose 115 ml @ 28.75 mls/ hr Q8H IV 05/17/18 02:00 05/27/18 01:59 05/22/18 18:30 28.75 MLS/HR Morphine Sulfate (MoRPHine SULFATE INJ) 2 mg Q4H PRN IV 05/19/18 06:30 06/02/18 06:29 Morphine Sulfate (MoRPHine SULFATE INJ) 4 mg Q4H PRN IV 05/19/18 06:30 06/02/18 06:29 Miscellaneous Information (Pharmacy Tpn/ Ppn Consult Active) 1 ea UD PRN N/A 05/19/18 06:30 06/18/18 06:29 Acetaminophen/ Hydrocodone Bitart ([place] 5/325 Tab) 1 tab Q4 PRN PO 05/20/18 06:00 06/03/18 05:59 Acetaminophen/ Hydrocodone Bitart ([place] 5/325 Tab) 2 tab Q4 PRN PO 05/20/18 06:00 06/03/18 05:59 Ioversol (Optiray 320) 100 ml UD PRN IV 05/20/18 14:00 05/24/18 13:59 Zolpidem Tartrate (Ambien Tab) 5 mg HS PRN PO 05/21/18 00:00 06/20/18 00:00 Heparin Sodium (Porcine) (Heparin 10 Unit/ ml 5 ml Flush) 5 ml PRN PRN FLUSH 05/22/18 00:45 06/21/18 00:44 Nutrition (Parenteral) 0 ml @ 0 mls/hr TODAY@1600 IV 05/22/18 16:00 05/23/18 15:59 05/22/18 16:15 0 MLS/HR Objective Vital Signs Date Time Temp Pulse Resp B/P (MAP) Pulse Ox O2 Delivery O2 Flow Rate FiO2 05/22/18 20:05 Room Air 05/22/18 15:27 36.9 77 18 159/83 (108) 98 Room Air 05/22/18 08:00 Room Air 05/22/18 07:46 37.2 73 17 151/82 (105) 98 Room Air 05/22/18 00:05 99 Room Air 05/21/18 23:19 37.7 82 18 139/82 (101) 97 Room Air Physical Exam General Appearance: WD/WN, no apparent distress Eyes: normal inspection, EOMI, sclerae normal ENT: normal ENT inspection, pharynx normal Neck: supple, no adenopathy, thyroid normal, trachea midline Respiratory/Chest: chest non-tender, lungs clear, normal breath sounds, no respiratory distress Cardiovascular: regular rate, rhythm, no gallop, no murmur Abdomen: normal bowel sounds, soft, no organomegaly, + tenderness Extremities: non-tender, no calf tenderness Neurologic/Psychiatric: no motor/sensory deficits, alert, oriented x 3 Skin: normal color, warm/dry, no rash Lymphatic: no adenopathy Laboratory Results Last 24 Hours Test 05/22/18 00:03 05/22/18 06:20 05/22/18 06:51 05/22/18 11:52 Bedside Glucose 123 mg/dl 98 mg/dl 111 mg/dl Sodium Level 136 mmol/L Potassium Level 4.1 mmol/L Chloride Level 105 mmol/L Carbon Dioxide Level 23 mmol/L Anion Gap 8.0 mmol/L Blood Urea Nitrogen 7 mg/dl Creatinine 0.53 mg/dl Est Creatinine Clear Calc Drug Dose 96.7 ml/min Estimated GFR () 115.5 Estimated GFR (Non- 99.6 BUN/Creatinine Ratio 12.6 Random Glucose 111 mg/dl Calcium Level 8.6 mg/dl Phosphorus Level 3.8 mg/dl Magnesium Level 2.4 mg/dl Test 05/22/18 18:34 Bedside Glucose 140 mg/dl Assessment and Plan 67-year-old female with recurrent diverticulitis now with perforation and abscess formation, suspect she did this earlier in the week, now appears to be showing some improvement. Agree that she will likely need more prolonged course of IV antibiotics, likely in the range of at least 2-3 weeks. Would recommend ertapenem 1 g daily to allow easiest outpatient therapy. Will follow.
[2018-05-22 22:59] VITALS: BP 144/75; PULSE 79; TEMP 37.2; O2SAT 98
[2018-05-23] MEDS: PIPERACILL/TAZOBAC IV 3.375 GM in DEXTROSE 5% 100ML 100 ML IV SCH ×3 (02:20→18:15)
[2018-05-23 06:36] LABS: HEMATOCRIT 34.1 % (37-47); HEMOGLOBIN 11.3 g/dL (12.0-16.0); MEAN CELL VOLUME 93.9 fL (80-100); MEAN CORPUSCULAR HEMOGLOBIN 31.1 pg (25-34); MEAN CORPUSCULAR HGB CONC 33.1 g/dl (32-36); MEAN PLATELET VOLUME 9.5 fL (7.4-10.4); PLATELET COUNT 432 K/uL (130-400); RED CELL DISTRIBUTION WIDTH CV 12.1 % (11.5-14.5); RED CELL DISTRIBUTION WIDTH SD 41.3 fL (36.4-46.3)
[2018-05-23 07:09] VITALS: BP 152/80; PULSE 71; TEMP 36.9; O2SAT 98
[2018-05-23 07:39] LABS: BASO % 1.3 %; BASO ABS # 0.09 K/uL (0-0.2); EOS % 4.2 %; EOS ABS # 0.29 K/uL (0-0.5); IG# 0.01 K/uL (0.00-0.02); LYMPH % 31.7 %; LYMPH ABS # 2.19 K/uL (1.2-3.4); MONO % 10.6 %; MONO ABS # 0.73 K/uL (0.11-0.59); NEUT % 52.1 %; NEUT ABS # 3.59 K/uL (1.4-6.5)
[2018-05-23] MEDS: ENOXAPARIN 40 MG/0.4 ML SYR SQ SCH (07:43)
[2018-05-23] MEDS: ASPIRIN 325 MG ECTAB PO SCH (07:44)
--- NOTE | 2018-05-23 10:56 | Surgery Progress Note ---
Surgery Progress Note Date of Service May 23, 2018. Subjective + feeling well, + bowel movement (remains loose), + diet (tolerated full liquid diet), No complaints, No nausea, No vomiting Objective Vital Signs: Date Time Temp Pulse Resp B/P (MAP) Pulse Ox O2 Delivery O2 Flow Rate FiO2 05/23/18 07:50 Room Air 05/23/18 07:09 36.9 71 18 152/80 (104) 98 Room Air 05/22/18 22:59 37.2 79 18 144/75 (98) 98 Room Air 05/22/18 20:05 Room Air 05/22/18 15:27 36.9 77 18 159/83 (108) 98 Room Air Abdomen: normal bowel sounds, non tender, non distended, soft Laboratory Results: Results Past 24 Hours Test 05/22/18 11:52 05/22/18 18:34 05/23/18 00:10 05/23/18 05:45 Range/Units Bedside Glucose 111 140 101 70-90 mg/dl White Blood Count 6.90 4.8-10.8 K/uL Red Blood Count 3.63 4.2-5.4 M/uL Hemoglobin 11.3 12.0-16.0 g/dL Hematocrit 34.1 37-47 % Mean Corpuscular Volume 93.9 80-100 fL Mean Corpuscular Hemoglobin 31.1 25-34 pg Mean Corpuscular Hemoglobin Concent 33.1 32-36 g/dl Platelet Count 432 130-400 K/uL Mean Platelet Volume 9.5 7.4-10.4 fL Neutrophils (%) (Auto) 52.1 % Lymphocytes (%) (Auto) 31.7 % Monocytes (%) (Auto) 10.6 % Eosinophils (%) (Auto) 4.2 % Basophils (%) (Auto) 1.3 % Neutrophils # (Auto) 3.59 1.4-6.5 K/uL Lymphocytes # (Auto) 2.19 1.2-3.4 K/uL Monocytes # (Auto) 0.73 0.11-0.59 K/uL Eosinophils # (Auto) 0.29 0-0.5 K/uL Basophils # (Auto) 0.09 0-0.2 K/uL RDW Standard Deviation 41.3 36.4-46.3 fL RDW Coefficient of Variation 12.1 11.5-14.5 % Immature Granulocyte % (Auto) 0.1 % Immature Granulocyte # (Auto) 0.01 0.00-0.02 K/uL Test 05/23/18 05:58 Range/Units Bedside Glucose 104 70-90 mg/dl Assessment & Plan Acute diverticulitis with intramural abscess increased in size to ~2.5 cm Continue IV antibiotics Plans for possible home IV antibiotics Thursday Can increase to low fiber diet today
--- NOTE | 2018-05-23 15:16 | Progress Note ---
Medicine Progress Note Date & Time of Visit: May 23, 2018 at 14:55 . Subjective CC: Follow-up visit for diverticulitis. HPI: Doing well. No fever. Tolerated low-fiber diet for lunch. Anxious to stop TPN. No abdominal pain, nausea, vomiting. Still having loose stools, but not as frequent. No melena or hematochezia. ROS: General- as noted above in HPI Resp- no cough; no shortness of breath Cardiac- no chest pain, no edema GI- as noted above in HPI - no dysuria, no difficulty voiding . Objective Last 8 Hrs Date Time Temp Pulse Resp B/P (MAP) Pulse Ox O2 Delivery O2 Flow Rate FiO2 05/23/18 07:50 Room Air Physical Exam: General- sitting in chair, no distress Lungs- clear to auscultation; no respiratory distress Cardiovascular- RRR; no murmur; no gallop; no JVD; no pretibial edema Abdomen- + bowel sounds, soft, nontender Extremities- no cyanosis; no calf tenderness; PICC RUE Neuro- alert, oriented Skin- warm & dry . Laboratory Results: Last 24 Hours Test 05/22/18 18:34 05/23/18 00:10 05/23/18 05:45 05/23/18 05:58 Bedside Glucose 140 mg/dl 101 mg/dl 104 mg/dl White Blood Count 6.90 K/uL Red Blood Count 3.63 M/uL Hemoglobin 11.3 g/dL Hematocrit 34.1 % Mean Corpuscular Volume 93.9 fL Mean Corpuscular Hemoglobin 31.1 pg Mean Corpuscular Hemoglobin Concent 33.1 g/dl Platelet Count 432 K/uL Mean Platelet Volume 9.5 fL Neutrophils (%) (Auto) 52.1 % Lymphocytes (%) (Auto) 31.7 % Monocytes (%) (Auto) 10.6 % Eosinophils (%) (Auto) 4.2 % Basophils (%) (Auto) 1.3 % Neutrophils # (Auto) 3.59 K/uL Lymphocytes # (Auto) 2.19 K/uL Monocytes # (Auto) 0.73 K/uL Eosinophils # (Auto) 0.29 K/uL Basophils # (Auto) 0.09 K/uL RDW Standard Deviation 41.3 fL RDW Coefficient of Variation 12.1 % Immature Granulocyte % (Auto) 0.1 % Immature Granulocyte # (Auto) 0.01 K/uL Test 05/23/18 11:58 Bedside Glucose 114 mg/dl Assessment & Plan COMPLICATED DIVERTICULITIS Presented to ED with fever, chills, abdominal pain. CT 05/16 demonstrated sigmoid diverticulitis with a possible pericolonic abscess and possible colovaginal fistula. Received IV antibiotic therapy with piperacillin / tazobactam. General Surgery and ID consulted. Received TPN. Follow-up CT on 05/21 demonstrated enlargement of suspected pericolonic abscess measuring 2.5 cm and suspected colovaginal fistula. Clinically improved. Diet advanced. 2-3 weeks of IV antibiotics recommended per ID. Remains on IV piperacillin. Transition to IV ertapenem per ID's recommendations. 2 prior episodes of diverticulitis. Outpatient consultation with Colorectal Surgery to discuss possibility of partial colectomy recommended. SEPSIS Met criteria for sepsis per current CMS definition (fever, tachycardia, leukocytosis). Source = diverticulitis. Blood cultures obtained in ED and patient received broad spectrum antibiotic coverage. Hemodynamically stable. Serum lactate was 0.6. DIARRHEA Stools negative for C diff 05/19. Secondary to diverticulitis and/or antibiotics. Improving. VTE PROPHYLAXIS SQ enoxaparin ordered, but patient refused. Ambulate. DISPOSITION Expected discharge to home. Patient would like to establish with Dr. Leon for primary care. Will need outpatient consultation with Colorectal Surgery. . Current Inpatient Medications: Current Inpatient Medications Medications (Trade) Dose Ordered Sig/Sally Route Start Time Stop Time Status Last Admin Dose Admin Enoxaparin Sodium (Lovenox Inj) 40 mg Q24H SQ 05/17/18 09:00 06/16/18 08:59 Acetaminophen (Tylenol Tab) 650 mg Q4H PRN PO 05/16/18 20:45 06/15/18 20:44 Tramadol HCl (Ultram Tab) not relieved ... Q6H PRN PO 05/16/18 20:45 06/15/18 20:44 Prochlorperazine Edisylate 5 mg/ Syringe 5 ml @ 5 mls/min Q6H PRN IV 05/16/18 20:45 06/15/18 20:44 Aspirin (Ecotrin Tab) 325 mg DAILY PO 05/17/18 09:00 06/16/18 08:59 05/18/18 08:14 325 MG Miscellaneous Information (Consult) 1 ea UD PRN N/A 05/17/18 09:00 06/16/18 08:59 Piperacillin Sod/ Tazobactam Sod 3.375 gm/Dextrose 115 ml @ 28.75 mls/ hr Q8H IV 05/17/18 02:00 05/27/18 01:59 05/23/18 10:11 28.75 MLS/HR Morphine Sulfate (MoRPHine SULFATE INJ) 2 mg Q4H PRN IV 05/19/18 06:30 06/02/18 06:29 Morphine Sulfate (MoRPHine SULFATE INJ) 4 mg Q4H PRN IV 05/19/18 06:30 06/02/18 06:29 Miscellaneous Information (Pharmacy Tpn/ Ppn Consult Active) 1 ea UD PRN N/A 05/19/18 06:30 05/23/18 16:00 Acetaminophen/ Hydrocodone Bitart ([place] 5/325 Tab) 1 tab Q4 PRN PO 05/20/18 06:00 06/03/18 05:59 Acetaminophen/ Hydrocodone Bitart ([place] 5/325 Tab) 2 tab Q4 PRN PO 05/20/18 06:00 06/03/18 05:59 Ioversol (Optiray 320) 100 ml UD PRN IV 05/20/18 14:00 05/24/18 13:59 Zolpidem Tartrate (Ambien Tab) 5 mg HS PRN PO 05/21/18 00:00 06/20/18 00:00 Heparin Sodium (Porcine) (Heparin 10 Unit/ ml 5 ml Flush) 5 ml PRN PRN FLUSH 05/22/18 00:45 06/21/18 00:44 Nutrition (Parenteral) 0 ml @ 0 mls/hr TODAY@1600 IV 05/22/18 16:00 05/23/18 15:59 05/22/18 16:15 0 MLS/HR
[2018-05-23 15:38] VITALS: BP 147/78; PULSE 83; TEMP 36.7; O2SAT 93
[2018-05-23] MEDS ORDERED: CUSTOM PERIPHERAL PN 1 BAG IV SCH (16:00)
[2018-05-23 23:07] VITALS: BP 137/70; PULSE 76; TEMP 36.9; O2SAT 98
--- NOTE | 2018-05-24 06:31 | Surgery Progress Note ---
Surgery Progress Note Date of Service May 24, 2018. Subjective afeb , wbc down wants to go home- feeling much better Objective Vital Signs: Date Time Temp Pulse Resp B/P (MAP) Pulse Ox O2 Delivery O2 Flow Rate FiO2 05/24/18 00:05 Room Air 05/23/18 23:07 36.9 76 16 137/70 (92) 98 Room Air 05/23/18 15:59 Room Air 05/23/18 15:38 36.7 83 18 147/78 (101) 93 Room Air 05/23/18 07:50 Room Air 05/23/18 07:09 36.9 71 18 152/80 (104) 98 Room Air General Appearance: no apparent distress Respiratory/Chest: no respiratory distress Abdomen: soft Laboratory Results: Results Past 24 Hours Test 05/23/18 11:58 05/24/18 05:24 Range/Units Bedside Glucose 114 70-90 mg/dl Erythrocyte Sedimentation Rate 43 0-21 mm/hr Assessment & Plan 05/24/18- feeling better- prob d/c today- IV atbx prob 3 weeks total for pelvic abscess- script for Curt in chart discuss with medical team - f/u CRS ( [facility] ) 05/20/18- some pain during night- toradol helped- may be crampy gas pain- has active bowel sounds- cont clears for now, ppn and IV atbx- needs 1-2 more days IV atbx- Dr Desai covering over weekend- considering [facility]orectal eval at [facility]- pt has extensive diverticulosis of Lt colon 05/19/18- having loose bm w/ some crampy pain- not unexpected will allow clear liquids and monitor closely- add ppn- if pt does not tolerate clear liquids well- may need picc tpn, ? IV atbx at home. Re CT with contrast at some point 05/18/18- doing well- Cont ice only today- discussed with pt pt has relativel significant diverticulosis Lt colon- I am considering outpt f/u with [facility] Colorectal surgery as she may benefit from laparoscopic/ ?robotic resection in future.Cont IV atbx acute diverticulitis w/ pericolonic inflammation Pain controlled, TTP slightly improved in lower quadrants. Tolerating chips/ sips, no N/V. afebrile. WBC WNL this AM - Continue IV Zosyn. Possibly start clears later today if she continues to do well. Continue conservative management per medicine. Please contact with questions or concerns. 05/16/18- cont npo exc ice 48 hrs 05/20/18- some pain during night- toradol helped- may be crampy gas pain- has active bowel sounds- cont clears for now, ppn and IV atbx- needs 1-2 more days IV atbx- Dr Desai covering over weekend- considering [facility]orectal eval at [facility]- pt has extensive diverticulosis of Lt colon 05/19/18- having loose bm w/ some crampy pain- not unexpected will allow clear liquids and monitor closely- add ppn- if pt does not tolerate clear liquids well- may need picc tpn, ? IV atbx at home. Re CT with contrast at some point 05/18/18- doing well- Cont ice only today- discussed with pt pt has relativel significant diverticulosis Lt colon- I am considering outpt f/u with [facility] Colorectal surgery as she may benefit from laparoscopic/ ?robotic resection in future.Cont IV atbx acute diverticulitis w/ pericolonic inflammation Pain controlled, TTP slightly improved in lower quadrants. Tolerating chips/ sips, no N/V. afebrile. WBC WNL this AM - Continue IV Zosyn. Possibly start clears later today if she continues to do well. Continue conservative management per medicine. Please contact with questions or concerns. 05/16/18- cont npo exc ice 48 hrs
[2018-05-24] MEDS ORDERED: HYDR-5688 PO (06:35)
--- NOTE | 2018-05-24 06:40 | Discharge Instructions ---
Discharge Instructions Date of Service May 24, 2018. Admission Reason for Admission: Sepsis Discharge Discharge Diagnosis / Problem: Diverticulitis Discharge Goals Goal(s): Decrease discomfort, Improve function, Improve disease control Activity Recommendations Activity Limitations: as noted below Lifting Limitations: no more than 25 pounds (light activity for 2 weeks) Exercise/Sports Limitations: until after follow-up appointment May Resume Sexual Activity: when tolerated Shower/Bathe: no limitations Driving or Machine Use: resume 1 day after discharge . Instructions / Follow-Up Instructions / Follow-Up please call Dr Farfan's office for followup in 2 weeks- ) - also plan for followup with Colorectal Surgery ( Lui ) Current Hospital Diet Patient's current hospital diet: Low Fiber Diet Discharge Diet Recommended Diet: Low Fiber Diet Pending Studies Studies pending at discharge: no Laboratory Results Hemoglobin A1c Test 05/16/18 18:02 Range/Units Estimated Average Glucose 114 mg/dl Hemoglobin A1c 5.6 4.5-5.6 % Lipid Panel Test 05/20/18 09:49 Range/Units Triglycerides Level 64 0-150 mg/dl Medical Emergencies . Who to Call and When: Medical Emergencies: If at any time you feel your situation is an emergency, please call 911 immediately. . Non-Emergent Contact Non-Emergency issues call your: Primary Care Provider, Surgeon . "Provider Documentation" section prepared by Ronald Farfan. .
[2018-05-24 07:25] VITALS: BP 128/75; PULSE 69; O2SAT 96
[2018-05-24] MEDS: ENOXAPARIN 40 MG/0.4 ML SYR SQ SCH (07:38)
[2018-05-24] MEDS: ASPIRIN 325 MG ECTAB PO SCH (07:38)
[2018-05-24 07:39] VITALS: TEMP 36.7
[2018-05-24] MEDS ORDERED: ERTAPENEM IV 1 GM in SODIUM CHLOR 0.9% AD-VAN 50ML 50 ML IV SCH (10:00)
[2018-05-24] MEDS ORDERED: ERTA1INJ IV (11:24)
[2018-05-24 14:57] VITALS: BP 145/75; PULSE 77; TEMP 36.9; O2SAT 94
[2018-05-24 15:45] VITALS: BP 145/75; PULSE 77; TEMP 36.9; O2SAT 94
--- NOTE | 2018-05-24 15:57 | Progress Note ---
Medicine Progress Note Date & Time of Visit: May 24, 2018 at 15:57 . Subjective Doing well. No fever. Tolerating diet. No nausea, vomiting, abdominal pain. Ambulating. Anxious to go home. . Objective Last 8 Hrs Date Time Temp Pulse Resp B/P (MAP) Pulse Ox O2 Delivery O2 Flow Rate FiO2 05/24/18 15:45 36.9 77 18 94 Room Air 05/24/18 14:57 36.9 77 18 145/75 (98) 94 Room Air 05/24/18 08:00 Room Air Physical Exam: General- no distress Lungs- clear to auscultation; no respiratory distress Cardiovascular- RRR; no murmur; no gallop; no JVD; no pretibial edema Abdomen- + bowel sounds, soft, nontender Extremities- no cyanosis; no calf tenderness; PICC RUE Neuro- alert, oriented Skin- warm & dry . Laboratory Results: Last 24 Hours Test 05/24/18 05:24 Erythrocyte Sedimentation Rate 43 mm/hr C-Reactive Protein 3.82 mg/dl Assessment & Plan COMPLICATED DIVERTICULITIS Presented to ED with fever, chills, abdominal pain. CT 05/16 demonstrated sigmoid diverticulitis with a possible pericolonic abscess and possible colovaginal fistula. Received IV antibiotic therapy with piperacillin / tazobactam. General Surgery and ID consulted. Received TPN. Follow-up CT on 05/21 demonstrated enlargement of suspected pericolonic abscess measuring 2.5 cm and suspected colovaginal fistula. Received IV piperacillin / tazo with improvement. Diet advanced and TPN discontinued. Transitioned to IV ertapenem per ID's recommendations; 3 weeks of total antibiotic therapy recommended. 2 prior episodes of diverticulitis. Outpatient consultation with Colorectal Surgery to discuss possibility of partial colectomy recommended. SEPSIS Met criteria for sepsis per current CMS definition (fever, tachycardia, leukocytosis). Source = diverticulitis. Blood cultures obtained in ED and patient received broad spectrum antibiotic coverage. Hemodynamically stable. Serum lactate was 0.6. DIARRHEA Stools negative for C diff 05/19. Secondary to diverticulitis and/or antibiotics. Improving. VTE PROPHYLAXIS SQ enoxaparin ordered, but patient refused. Ambulate. DISPOSITION Discharge to home with outpatient IV antibiotic therapy arranged. Patient would like to establish with Dr. Leon for primary care. Will need outpatient consultation with Colorectal Surgery. . Current Inpatient Medications: Current Inpatient Medications Medications (Trade) Dose Ordered Sig/Sally Route Start Time Stop Time Status Last Admin Dose Admin Enoxaparin Sodium (Lovenox Inj) 40 mg Q24H SQ 05/17/18 09:00 06/16/18 08:59 Acetaminophen (Tylenol Tab) 650 mg Q4H PRN PO 05/16/18 20:45 06/15/18 20:44 Tramadol HCl (Ultram Tab) not relieved ... Q6H PRN PO 05/16/18 20:45 06/15/18 20:44 Prochlorperazine Edisylate 5 mg/ Syringe 5 ml @ 5 mls/min Q6H PRN IV 05/16/18 20:45 06/15/18 20:44 Aspirin (Ecotrin Tab) 325 mg DAILY PO 05/17/18 09:00 06/16/18 08:59 05/18/18 08:14 325 MG Morphine Sulfate (MoRPHine SULFATE INJ) 2 mg Q4H PRN IV 05/19/18 06:30 06/02/18 06:29 Morphine Sulfate (MoRPHine SULFATE INJ) 4 mg Q4H PRN IV 05/19/18 06:30 06/02/18 06:29 Acetaminophen/ Hydrocodone Bitart ([place] 5/325 Tab) 1 tab Q4 PRN PO 05/20/18 06:00 06/03/18 05:59 Acetaminophen/ Hydrocodone Bitart ([place] 5/325 Tab) 2 tab Q4 PRN PO 05/20/18 06:00 06/03/18 05:59 Zolpidem Tartrate (Ambien Tab) 5 mg HS PRN PO 05/21/18 00:00 06/20/18 00:00 Heparin Sodium (Porcine) (Heparin 10 Unit/ ml 5 ml Flush) 5 ml PRN PRN FLUSH 05/22/18 00:45 06/21/18 00:44 05/24/18 05:28 5 ML Ertapenem 1 gm/ Sodium Chloride 50 ml @ 120 mls/hr DAILY@1000 IV 05/24/18 10:00 06/03/18 09:59 05/24/18 10:01 120 MLS/HR
--- NOTE | 2018-05-27 07:54 | Discharge Summary ---
Discharge Summary Date of Service May 27, 2018. Discharge Summary Admission Date: May 16, 2018 at 20:14 Discharge Date: May 24, 2018 Discharge Disposition: Home with services Principal Diagnosis: complicated diverticulitis . Procedures: CT abdomen + pelvis 05/16/18 CT abdomen + pelvis 05/21/18 IV fluids IV meds TPN . Consultations: General Surgery ID . Admission Information HPI (per Admitting provider): Medical history significant for recurrent diverticulitis (2 episodes), mood disorder, Cervical intraepithelial neoplasia as per records. Four days history of mild, intermittent lower abdominal discomfort following dinner. Symptoms more pronounced last night. some nausea, no emesis. Patient had fever, chills. Nonbloody stools. Symptoms reminiscent of diverticulitis episodes. Denies dysuria. At the Emergency Room, CAT scan showed acute sigmoid diverticulitis with a 1.6 inflamed diverticulum versus small pericolonic abscess at the location. Possible developing colovaginal fistula along the left-sided vaginal cuff, mildly thickened but inflamed colon. Patient given Zosyn at the ER. . Physical Exam (per Admitting): VITAL SIGNS: Blood pressure was noted to be 190/76, later 137/72; pulse rate 106, later 93; respiratory rate 18, temperature 38.4, sats 98 on room air. GENERAL: Noted to be slightly anxious, obese, in no respiratory distress. SKIN: Normal color, warm. HEENT: Bespectacled. K[place]me palpebral conjunctivae. No ptosis. Dry mucosa. NECK: Supple, nontender. CHEST: Clear to auscultation. No tenderness. HEART: Regular rate and rhythm. No murmur. ABDOMEN: Minimal hypogastric tenderness, some distention. EXTREMITIES: Healed scar on the left elbow. No LE tenderness. NEUROLOGIC: Coherent, no gross focality. . Hospital Course COMPLICATED DIVERTICULITIS Presented to ED with fever, chills, abdominal pain. CT 05/16 demonstrated sigmoid diverticulitis with a possible pericolonic abscess and possible colovaginal fistula. Received IV antibiotic therapy with piperacillin / tazobactam. General Surgery and ID consulted. Received TPN. Follow-up CT on 05/21 demonstrated enlargement of suspected pericolonic abscess measuring 2.5 cm and suspected colovaginal fistula. Received IV piperacillin / tazo with improvement. Diet advanced and TPN discontinued. Transitioned to IV ertapenem per ID's recommendations; 3 weeks of total antibiotic therapy recommended. 2 prior episodes of diverticulitis. Outpatient consultation with Colorectal Surgery to discuss possibility of partial colectomy recommended. SEPSIS Met criteria for sepsis per current CMS definition (fever, tachycardia, leukocytosis). Source = diverticulitis. Blood cultures obtained in ED and patient received broad spectrum antibiotic coverage. Hemodynamically stable. Serum lactate was 0.6. DIARRHEA Stools negative for C diff 05/19. Secondary to diverticulitis and/or antibiotics. Improving. VTE PROPHYLAXIS SQ enoxaparin ordered, but patient refused. Ambulate. DISPOSITION Discharge to home with outpatient IV antibiotic therapy arranged. Patient would like to establish with Dr. Leon for primary care. Will need outpatient consultation with Colorectal Surgery. . Total time spent on discharge = 40 min. This includes examination of the patient, discharge planning, medication reconciliation, and communication with other providers. . Discharge Instructions DISCHARGE MEDICATIONS: ertapenem 1 gm IV daily for 14 days hydrocodone / acetaminophen 1-2 tabs PO q 6 hrs PRN pain acetaminophen 1000 mg PRN pain aspirin 325 mg PO daily Discharge Instructions Date of Service May 24, 2018. Admission Reason for Admission: Sepsis Discharge Discharge Diagnosis / Problem: Diverticulitis Discharge Goals Goal(s): Decrease discomfort, Improve function, Improve disease control Activity Recommendations Activity Limitations: as noted below Lifting Limitations: no more than 25 pounds (light activity for 2 weeks) Exercise/Sports Limitations: until after follow-up appointment May Resume Sexual Activity: when tolerated Shower/Bathe: no limitations Driving or Machine Use: resume 1 day after discharge . Instructions / Follow-Up Instructions / Follow-Up please call Dr Farfan's office for followup in 2 weeks- ) - also plan for followup with Colorectal Surgery ( Lui ) Current Hospital Diet Patient's current hospital diet: Low Fiber Diet Discharge Diet Recommended Diet: Low Fiber Diet Pending Studies Studies pending at discharge: no Laboratory Results Hemoglobin A1c Test 05/16/18 18:02 Range/Units Estimated Average Glucose 114 mg/dl Hemoglobin A1c 5.6 4.5-5.6 % Lipid Panel Test 05/20/18 09:49 Range/Units Triglycerides Level 64 0-150 mg/dl Medical Emergencies . Who to Call and When: Medical Emergencies: If at any time you feel your situation is an emergency, please call 911 immediately. . Non-Emergent Contact Non-Emergency issues call your: Primary Care Provider, Surgeon . "Provider Documentation" section prepared by Ronald Farfan. . .
== END 2018-05-24 16:06 | disposition home or self-care (01) | DRG 872 ==
LOC: C.EDB 17:20 → C.MED 20:14 → EDBEDREQ 20:21 → ENRESERV 20:23 → C.MS2W 05-17 22:14
PROVIDERS: ADMIT Internal Medicine; ATTEND Hospitalist
PROC: 02HV33Z Insertion of Infusion Device into Superior Vena Cava, Percutaneous Approach (ICD-10-PCS; principal; 2018-05-21)
DX: A41.9 Sepsis, unspecified organism (principal); K52.1 Toxic gastroenteritis and colitis; K57.20 Diverticulitis of large intestine with perforation and abscess without bleeding; E11.9 Type 2 diabetes mellitus without complications; F39 Unspecified mood [affective] disorder; T36.95XA Adverse effect of unspecified systemic antibiotic, initial encounter; Y92.019 Unspecified place in single-family (private) house as the place of occurrence of the external cause